=== PATIENT | female | born 1965 | race Caucasian/White ===

== ENCOUNTER 2024-09-11 13:28 | Observation (INO) | payer BC ==
--- OUTSIDE RECORDS SUMMARY | 2024-09-11 13:31 | XMS REPORT | Continuity of Care Document ---
Author Name Unknown Address [address] [facility] [address] th[address] Address [address] [facility] [address] [place] [address] Care Team Providers Care Occupational Health Physician Name Role Phone SATISH PICKENS Attending Clinician Unavailable KENNEDY BARROW Attending Clinician Unavailable KINSEY HARRIS Attending Clinician Unava ilable RADHA CURIEL Attending Clinician Un available [id number] Attending Clinician Unavailable MD TERRY Attending Clinician Unavailab le LAB90 Attending Clinician Unavailable BLAS MEJIA Attending Clinician Unavailable LADAN SORIA Attending Clinician Unavai lable LAB91 Attending Clinician Unavailable ARNOLD ERNANDEZ Attending Clinician Unavailable MANUEL NEWMAN Attending Clinician Unavailable [id number] Attending Clinician Unavailable Somphet_M_WAGDNU Attending Clinician Unavailable Aguilar_M Attending Clinician Unavailable DIDIER SHARP APRN Attending Clinician Unavaila ble Somphet_M_WAGDNU Admitting Clinician Unavailable Aguilar_M Admitting Clinician Unavailable Payers Payer Name Policy Type Policy Number Effective Date Expirati on Date Source BCBS 2 [id number] 2023 00:00:00 [facility]/P* 3 [id number] 2022 00:00:00 [facility] - CIGNA [id number] 2022 00:00:[place] [id number] 2018 00:00:00 Problems Condition Name Condition Details Condition Category Status Onset Date Resolution Date Last Treatment Date Treating Clinician Comments Source Type 2 diabetes mellitus with hyperlipid emia (multi HCC) Type 2 diabetes mellitus with hyperlipid emia (multi HCC) Disease Active 07-08 00:00: 00 Noreen Zieglerold - Externa l Type 2 diabetes mellitus (multi HCC) Type 2 diabetes mellitus (multi HCC) Disease Active 2021-11 00:00: 00 Noreen Zieglerold - Externa l Psoriasis Psoriasis Disease Active 2021-11 00:00: 00 Noreen Zieglerold - Externa l Essential hypertensi on Essential hypertensi on Disease Active 2021-11 00:00: 00 Noreen Zieglerold - Externa l Smokes tobacco daily Smokes Tobacco Daily Problem Active 2021-11 00:00: 00 [facility] Depressive disorder Depressive Disorder Problem Active 2021-11 00:00: 00 [facility] Psoriasis Psoriasis Problem Active 2021-11 00:00: 00 [facility] Diabetes mellitus Diabetes Mellitus Problem Active 02-21 00:00: 00 [facility] Hypertensi ve disorder Hypertensi ve Disorder Problem Active 415 00:00: 00 [facility] History of diabetes mellitus History of diabetes mellitus Problem [facility]olve d [facility] Problem Active [facility] Tobacco abuse Tobacco abuse Problem Active [facility] Dermatitis Dermatitis Problem Active [facility] Tobacco abuse counseling Tobacco abuse counseling Problem Active [facility] Alcohol screening Alcohol screening Problem Active [facility] Obesity (BMI 30-39.9) Obesity (BMI 30-39.9) Problem Active [facility] Type 2 diabetes mellitus Type 2 diabetes mellitus Problem Active [facility] Hyperlipid emia Hyperlipid emia Disease Active Noreen Seybold - Externa l Allergies, Adverse Reactions, Alerts Allergy Name Allergy Type Status Severity Reaction(s) Onset Date Inactive Date Treating Clinician Comments Source concrete dust [Other] Propensi ty to adverse reaction s Active 2021-11 00:00: 00 Noreen Zieglerold - Externa l Lisinopr il Propensi ty to adverse reaction s Active Cough 2021-11 00:00: 00 Noreen Seybold - Externa l Metformi n Drug Intolera nce Active Diarrhea 2021-11 00:00: 00 Noreen Zieglerold - Externa l Lisinopr il Allergy to substanc e Active Mild Cough [facility] Social History Social Habit Start Date Stop Date Quantity Comments Source Sexual orientation 2024-04-18 11:19:02 Heterosexual (finding) Noreen Juarez - External History of tobacco use 1978-11-09 00:00:00 Cigarette Smoker Noreen Juarez - External Gender identity Alma fay Seybold - External History SDOH Alcohol Frequency Noreen madrigal - External History SDOH Alcohol Std Drinks Noreen Orourke ybold - External History SDOH Alcohol Binge Noreen Juarez - External ASSERTION Not Noreen Juarez - External Alcoholic beverage intake 2024-08-18 00:00:00 2024-08-18 00:00:00 Current drinker of alcohol (finding) Noreen Juarez - External Cigarettes smoked current (pack per day) - Reported 2024-08-01 00:00:00 2024-08-01 00:00:00 Noreen Juarez - External Cigarette pack-years 2024-08-01 00:00:00 2024-08-01 00:00:00 Noreen Juarez - External Tobacco use and exposure 2024-08-01 00:00:00 2024-08-01 00:00:00 Smokeless tobacco non-user Noreen Juarez - External Alcohol intake 2023-11-27 00:00:00 2023-11-27 00:00:00 Current drinker of alcohol (finding) Noreen Juarez - External History of Social function 2023-03-26 00:00:00 2023-03-26 00:00:00 Noreen Juarez - External Alcohol Comment 2022-09-19 00:00:00 2022-09-19 00:00:00 socially Noreen Juarez - External Sex 2012-11-24 19:37:11 2012-11-24 19:37:11 Female (finding) Noreen Juarez - External Sex assigned at 1965 00:00:00 1965 00:00:00 F Noreen Juarez - External Smoking Status Start Date Stop Date Source Heavy Tobacco Smoker [facility] Tobacco smoking consumption unknown Noreen Valenzuela Smokes tobacco daily 2024-08-01 00:00:00 Noreen Valenzuela Ex-smoker 2024-05-06 00:00:00 2024-05-06 00:00:00 Noreen Valenzuela Medications Ordered Medication Name Filled Medication Name Start Date Stop Date Current Medication? Ordering Clinician Indication Dosage Frequency Signature (SIG) Comments Components Source Ascorbic Acid (Vitamin C) 500 MG oral Capsule 2023-11 10:19: 08-18 00:00 :00 No Take by mouth Noreen heart Zinc 50 MG oral Capsule 2023-11 10:19: 09 Yes Take by mouth Noreen heart COLLAGEN OR 2023-11 10:19: 09 Yes Take by mouth Noreen heart Cholecalcif josh (D-3-5) 125 MCG (5000 UT) oral Capsule 2023-11 10:19: 09 Yes Take by mouth Noreen heart Semaglutide (Rybelsus) 7 MG oral Tablet 2023-11 00:00: 00 Yes [id number] 1{tbl} QD Take 1 tablet by mouth daily. Noreen heart Pioglitazon e HCl 15 MG oral Tablet 2023-11 00:00: 00 Yes [id number] 15mg QD Take 1 tablet (15 mg total) by mouth daily. Noreen ehart Continuous Glucose Sensor (FreeStyle Elena 3 Plus Sensor) does not apply Misc 2023-11 00:00: 00 Yes [id number] 1{devic e} 1 device by does not apply route every 15 days. Noreen heart Semaglutide (Rybelsus) 3 MG oral Tablet 07-15 00:00: 00 08-18 00:00 :00 No [id number] 1{tbl} QD Take 1 tablet by mouth daily. Noreen heatr Escitalopra m Oxalate 10 MG oral Tablet - 00:00: 00 Yes [id number] 10mg QD Take 1 tablet (10 mg total) by mouth daily. Noreen heart Zinc 50 MG oral Capsule 06-03 07:58: 52 Yes Take by mouth Noreen heart Ascorbic Acid (Vitamin C) 500 MG oral Capsule 06-03 07:58: 30 Yes Take by mouth Noreen Landaa l COLLAGEN OR 06-03 07:58: 30 Yes Take by mouth Noreen heart Cholecalcif josh (D-3-5) 125 MCG (5000 UT) oral Capsule 06-03 07:58: 30 Yes Take by mouth Noreen heart Barberry-Or eg Grape-Golde nseal (BERBERINE COMPLEX OR) 06-03 07:57: 13 06-03 00:00 :00 No Take by mouth Noreen heart Ascorbic Acid (Vitamin C) 500 MG oral Capsule 05-06 09:04: 41 Yes Take by mouth Noreen heart Zinc 50 MG oral Capsule 05-06 09:04: 41 Yes Take by mouth Noreen heart COLLAGEN OR 05-06 09:04: 41 Yes Take by mouth Noreen heart Cholecalcif josh (D-3-5) 125 MCG (5000 UT) oral Capsule 05-06 09:04: 41 Yes Take by mouth Noreen heart Losartan Potassium-H CTZ 100-12.5 MG oral Tablet 05-06 00:00: 00 Yes [id number] 1{tbl} QD Take 1 tablet by mouth daily. Noreen heart Losartan Potassium-H CTZ 100-12.5 MG oral Tablet 05-06 00:00: 00 Yes [id number] 1{tbl} QD Take 1 tablet by mouth daily. Noreen heart Bupropion HCL XL 300 MG OR TB24 05-06 00:00: 00 Yes [id number] 300mg QD Take 1 tablet (300 mg total) by mouth daily. Noreen heart glyBURIDE 5 MG oral Tablet 05-06 00:00: 00 Yes [id number] 10mg QD Take 2 tablets (10 mg total) by mouth daily (with breakfast) . Noreen heart Losartan Potassium-H CTZ 100-12.5 MG oral Tablet 05-06 00:00: 00 Yes [id number] 1{tbl} QD Take 1 tablet by mouth daily. Noreen heart Rosuvastati n Calcium 40 MG oral Tablet 05-06 00:00: 00 Yes [id number] 40mg QD Take 1 tablet (40 mg total) by mouth daily. Noreen heart Bupropion HCL XL 300 MG OR TB24 05-06 00:00: 00 Yes [id number] 300mg QD Take 1 tablet (300 mg total) by mouth daily. Noreen heart Triamcinjameson ne Acetonide 0.1 % apply externally Cream 05-06 00:00: 00 Yes [id number] Apply to rash on the legs, arms, and trunk twice daily as needed. Noreen heart glyBURIDE 5 MG oral Tablet 05-06 00:00: 00 08-18 00:00 :00 No [id number] 10mg QD Take 2 tablets (10 mg total) by mouth daily (with breakfast) . Noreen heart Continuous Glucose Sensor (FreeStyle Elena 2 Sensor) does not apply Misc 05-06 00:00: 00 08-18 00:00 :00 No [id number] Check glucose continuous ly. Noreen heart Triamcinjameson ne Acetonide 0.1 % apply externally Cream 4-08 00:00: 00 05-06 00:00 :00 No [id number] Apply to rash on the legs, arms, and trunk twice daily as needed. Noreen heart Bupropion HCL XL 300 MG OR TB24 1-19 16:40: 25 11-27 00:00 :00 No 300mg Take 1 tablet (300 mg total) by mouth daily. Noreen heart Ascorbic Acid (Vitamin C) 500 MG oral Capsule 11-27 16:23: 49 Yes Take by mouth Noreen heart Zinc 50 MG oral Capsule 11-27 16:23: 49 Yes Take by mouth Noreen heart Barberry-Or eg Grape-Golde nseal (BERBERINE COMPLEX OR) 11-27 16:23: 49 Yes Take by mouth Noreen heart Cholecalcif josh (D-3-5) 125 MCG (5000 UT) oral Capsule 11-27 16:23: 49 Yes Take by mouth Noreen heart glyBURIDE 5 MG oral Tablet 11-27 00:00: 00 06-03 00:00 :00 No [id number] 5mg QD Take 1 tablet (5 mg total) by mouth daily (with breakfast) . Noreen heart Continuous Blood Gluc Sensor (FreeStyle Elena 2 Sensor) does not apply [facility] 11-27 00:00: 00 05-06 00:00 :00 No [id number] Check glucose continuous ly. Noreen heart Losartan Potassium-H CTZ 100-12.5 MG oral Tablet 11-27 00:00: 00 05-06 00:00 :00 No [id number] 1{tbl} QD Take 1 tablet by mouth daily. Noreen heart Bupropion HCL XL 300 MG OR TB24 11-27 00:00: 00 05-06 00:00 :00 No [id number] 300mg QD Take 1 tablet (300 mg total) by mouth daily. Noreen heart Rosuvastati n Calcium 40 MG oral Tablet 11-27 00:00: 00 05-06 00:00 :00 No [id number] 40mg QD Take 1 tablet (40 mg total) by mouth daily. Noreen heart Bupropion HCL XL 150 MG OR TB24 -17 00:00: 00 11-27 00:00 :00 No 150mg Take 1 tablet (150 mg total) by mouth daily Noreen heart Jardiance 10 MG oral Tablet 06-15 00:00: 00 06-03 00:00 :00 No [id number] 10mg QD TAKE ONE (1) TABLET(S) BY MOUTH DAILY. Noreen heart Rosuvastati n Calcium 40 MG oral Tablet 03-30 00:00: 00 11-27 00:00 :00 No 40mg Take 1 tablet (40 mg total) by mouth daily Noreen heart Ascorbic Acid (Vitamin C) 500 MG oral Capsule 03-26 08:14: 46 Yes Take by mouth Noreen heart Zinc 50 MG oral Capsule 03-26 08:14: 46 Yes Take by mouth Noreen heart Barberry-Or eg Grape-Golde nseal (BERBERINE COMPLEX OR) 03-26 08:14: 46 Yes Take by mouth Noreen heart Cholecalcif josh (D-3-5) 125 MCG (5000 UT) oral Capsule 03-26 08:14: 46 Yes Take by mouth Noreen heart glyBURIDE 5 MG oral Tablet 03-26 00:00: 00 Yes [id number] 5mg Take 1 tablet (5 mg total) by mouth daily (with breakfast) Noreen heart Bupropion HCL XL 300 MG OR TB24 03-26 00:00: 00 Yes [id number] 300mg Take 1 tablet (300 mg total) by mouth daily Noreen heart Losartan Potassium-H CTZ 100-12.5 MG oral Tablet 03-26 00:00: 00 Yes [id number] 1{tbl} Take 1 tablet by mouth daily Noreen heart Rosuvastati n Calcium 20 MG oral Tablet 03-26 00:00: 00 Yes [id number] TAKE 1 TABLET EVERY DAY BY ORAL ROUTE. Noreen heart Empaglifloz in (Jardiance) 10 MG oral Tablet 03-26 00:00: 00 Yes [id number] 10mg Take 1 tablet (10 mg total) by mouth daily Noreen heart Imiquimod 5 % apply externally Cream 01-28 00:00: 00 Yes [id number] Apply a thin layer to area on the left lower eyelid nightly for 16 weeks. Noreen heart Ascorbic Acid (Vitamin C) 500 MG oral Capsule 01-01 13:42: 02 Yes Take by mouth Noreen heart Zinc 50 MG oral Capsule 01-01 13:42: 02 Yes Take by mouth Noreen heart Barberry-Or eg Grape-Golde nseal (BERBERINE COMPLEX OR) 01-01 13:42: 02 Yes Take by mouth Noreen heart Cholecalcif josh (D-3-5) 125 MCG (5000 UT) oral Capsule 01-01 13:42: 02 Yes Take by mouth Noreen heart Bupropion HCL XL 300 MG OR TB24 01-01 00:00: 00 Yes [id number] 300mg Take 1 tablet (300 mg total) by mouth daily Noreen heart Losartan Potassium-H CTZ 100-12.5 MG oral Tablet 01-01 00:00: 00 Yes [id number] 1{tbl} Take 1 tablet by mouth daily Noreen heart glyBURIDE 5 MG oral Tablet 01-01 00:00: 00 04-02 04:59 :00 No [id number] 5mg Take 1 tablet (5 mg total) by mouth daily (with breakfast) Noreen heart Semaglutide (Rybelsus) 7 MG oral Tablet 01-01 00:00: 00 03-26 00:00 :00 No [id number] 1{tbl} Take 1 tablet by mouth daily Noreen heart Rosuvastati n Calcium 20 MG oral Tablet 01-01 00:00: 00 03-26 00:00 :00 No [id number] TAKE 1 TABLET EVERY DAY BY ORAL ROUTE. Noreen heart Imiquimod 5 % apply externally Cream 12-30 00:00: 00 Yes [id number] Apply a thin layer to area on the left lower eyelid nightly for 16 weeks. Noreen heart glyBURIDE 5 MG oral Tablet 12-17 00:00: 00 01-01 00:00 :00 No [id number] 10mg Take 2 tablets (10 mg total) by mouth daily (with breakfast) Noreen heart Glucose Blood in vitro Strip 11-10 00:00: 00 Yes 100{eac h} 100 each by other route daily Noreen heart Glucose Blood in vitro Strip 11-10 00:00: 00 Yes 100{eac h} QD 100 each by other route daily Noreen heart Bupropion HCL XL 300 MG OR TB24 11-10 00:00: 00 01-01 00:00 :00 No 300mg Take 1 tablet (300 mg total) by mouth daily Noreen heart Losartan Potassium-H CTZ 100-12.5 MG oral Tablet 11-10 00:00: 00 01-01 00:00 :00 No 1{tbl} Take 1 tablet by mouth daily Noreen heart Blood Glucose Monitoring Suppl (Accu-Chek Valentine Plus) w/Device does not apply Kit 2021-11 00:00: 00 Yes USE DIRECTED NEEDED. Noreen heart Ascorbic Acid (Vitamin C) 500 MG oral Capsule 2021-11 08:09: 47 Yes Take by mouth Noreen heart Zinc 50 MG oral Capsule 2021-11 08:09: 47 Yes Take by mouth Noreen heart Barberry-Or eg Grape-Golde nseal (BERBERINE COMPLEX OR) 2021-11 08:09: 47 Yes Take by mouth Noreen heart Cholecalcif josh (D-3-5) 125 MCG (5000 UT) oral Capsule 2021-11 08:09: 47 Yes Take by mouth Noreen heart Continuous Blood Gluc Information Resource Consultant (FreeStyle Elena 14 Day [place]) does not apply Device 2021-11 00:00: 00 Yes [id number] Use as directed for continuous glucose monitoring Noreen heart Continuous Blood Gluc Sensor (FreeStyle Elena 14 Day Sensor) does not apply Misc 2021-11 00:00: 00 Yes [id number] Use as directed for continuous glucose monitoring with Elena sytem Noreen heart Semaglutide (Rybelsus) 7 MG oral Tablet 2021-11 00:00: 00 Yes [id number] 1{tbl} Take 1 tablet by mouth daily Noreen heart Glucose Blood (FreeStyle Precision Kirill Test) in vitro Strip 2021-11 00:00: 00 08-18 00:00 :00 No [id number] Use as directed for continuous glucose monitoring with Elena system Noreen heart Ostomy Supplies (Skin Tac Adhesive Barrier Wipe) does not apply [facility] 2021-11 00:00: 00 06-03 00:00 :00 No [id number] Use as directed for continuous glucose monitoring with Elena system Noreen heart glyBURIDE 5 MG oral Tablet 2021-11 00:00: 00 12-19 05:59 :00 No [id number] 10mg Take 2 tablets (10 mg total) by mouth daily (with breakfast) Noreen heart Triamcinolo ne Acetonide 0.1 % apply externally Cream 2021-11 00:00: 00 Yes [id number] Apply to rash on the legs, arms, and trunk twice daily as needed Noreen heart Hydrocortis one 2.5 % apply externally Cream 2021-11 00:00: 00 Yes [id number] Apply to rash on the armpits and breasts twice daily as needed. Noreen heart Rosuvastati n Calcium 20 MG oral Tablet 2021-11 0 00:00: 00 Yes TAKE 1 TABLET EVERY DAY BY ORAL ROUTE. Noreen heart Rybelsus 3 mg tablet Take 1 tablet every day by oral route for 30 days. Rybelsus 3 mg tablet Take 1 tablet every day by oral route for 30 days. 2021-11 00:00: 00 No 1 Q1D Rybelsus 3 mg tablet Take 1 tablet every day by oral route for 30 days. [facility] Rybelsus 3 mg tablet Take 1 tablet every day by oral route for 30 days. Rybelsus 3 mg tablet Take 1 tablet every day by oral route for 30 days. 2021-11 00:00: 00 No 1 Q1D Rybelsus 3 mg tablet Take 1 tablet every day by oral route for 30 days. [facility] Bupropion HCL XL 300 MG OR TB24 07-27 00:00: 00 Yes 300mg Take 300 mg by mouth daily Noreen Landaa una glyBURIDE 5 MG oral Tablet 07-26 00:00: 00 Yes 5mg Take 5 mg by mouth daily Noreen Landaa una Atorvastati n Calcium 10 MG oral Tablet 07-24 00:00: 00 Yes 10mg Take 10 mg by mouth daily Noreen Landaa una Losartan Potassium-H CTZ 100-12.5 MG oral Tablet 07-23 00:00: 00 Yes 1{tbl} Take 1 tablet by mouth daily Noreen Landaa una Wellbutrin XL Wellbutrin XL 2019-11 00:00: 00 No Wellbutrin XL [facility] glyBURIDE 5 MG Oral Tablet glyBURIDE 5 MG Oral Tablet 2019-11 00:00: 00 Yes DIDIER SHARP APRN Q0.5D TAKE 2 TABLETS TWICE DAILY [facility] Lantus SoloStar 100 UNIT/ML Subcutaneou s Solution Pen-injecto r Lantus SoloStar 100 UNIT/ML Subcutaneou s Solution Pen-injecto r 2019-11 00:00: 00 Yes DIDIER SHARP APRN QD INJECT 10 UNIT DAILY every evening [facility] Accu-Chek Valentine Plus w/Device Kit Accu-Chek Valentine Plus w/Device Kit 2019-11 00:00: 00 Yes DIDIER SHARP APRN USE DIRECTED. [facility] Accu-Chek Valentine Plus In Vitro Strip Accu-Chek Valentine Plus In Vitro Strip 2019-11 00:00: 00 Yes DIDIER SHARP ASSEMBLER 1ST SHIFT test 3 times daily [facility] Accu-Chek FastClix Lancets Accu-Chek FastClix Lancets 2019-11 00:00: 00 Yes DIDIER SHARP ASSEMBLER 1ST SHIFT CHECK BLOOD SUGAR DIRECTED (3 TIMES DAILY). [facility] BD Pen Needle Mini U/F 31G X 5 MM BD Pen Needle Mini U/F 31G X 5 MM 2019-11 00:00: 00 Yes DIDIER SHARP ASSEMBLER 1ST SHIFT USE DIRECTED. [facility] Losartan Potassium-H CTZ 100-25 MG Oral Tablet Losartan Potassium-H CTZ 100-25 MG Oral Tablet 2019-11 00:00: 00 Yes DIDIER SHARP ASSEMBLER 1ST SHIFT QD TAKE 1 TABLET ONCE DAILY. [facility] buPROPion HCl ER (XL) 150 MG Oral Tablet Extended Release 24 Hour buPROPion HCl ER (XL) 150 MG Oral Tablet Extended Release 24 Hour 2019-11 00:00: 00 Yes DIDIER SHARP ASSEMBLER 1ST SHIFT QD TAKE 1 TABLET DAILY DIRECTED. [facility] predniSONE 20 MG Oral Tablet predniSONE 20 MG Oral Tablet 2019-11 00:00: 00 Yes DIDIER SHARP ASSEMBLER 1ST SHIFT 1 Q0.5D TAKE 1 TABLET Twice daily As Directed with food [facility] atorvastati n 10 mg tablet TAKE ONE (1) TABLET(S) BY MOUTH DAILY. atorvastati n 10 mg tablet TAKE ONE (1) TABLET(S) BY MOUTH DAILY. No atorvastat in 10 mg tablet TAKE ONE (1) TABLET(S) BY MOUTH DAILY. [facility] atorvastati n 10 mg tablet Take 1 tablet every day by oral route for 90 days. atorvastati n 10 mg tablet Take 1 tablet every day by oral route for 90 days. No 1 Q1D atorvastat in 10 mg tablet Take 1 tablet every day by oral route for 90 days. [facility] bupropion HCl XL 300 mg 24 hr tablet, extended release Take 1 tablet every day by oral route for 90 days. bupropion HCl XL 300 mg 24 hr tablet, extended release Take 1 tablet every day by oral route for 90 days. No 1 Q1D bupropion HCl XL 300 mg 24 hr tablet, extended release Take 1 tablet every day by oral route for 90 days. [facility] glyburide 5 mg tablet Take 2 tablets twice a day by oral route for 90 days. glyburide 5 mg tablet Take 2 tablets twice a day by oral route for 90 days. No 2 BID glyburide 5 mg tablet Take 2 tablets twice a day by oral route for 90 days. [facility] Immunizations Ordered Immunization Name Filled Immunization Name Date Status Comments Source zoster recombinant zoster recombinant 2021-04-26 16:37:17 Completed [facility] zoster, unspecified formulation zoster, unspecified formulation 2021-04-26 00:00:00 Completed [facility] zoster, unspecified formulation zoster, unspecified formulation 2021-04-26 00:00:00 Completed [facility] pneumococcal polysaccharide PPV23 pneumococcal polysaccharide PPV23 2021-02-21 12:03:00 Completed [facility] Tdap Tdap 2021-02-21 12:02:00 Completed [facility] Tdap Tdap 2021-02-21 12:02:00 Completed [facility] Tdap Tdap 2021-02-21 12:02:00 Completed [facility] zoster recombinant zoster recombinant 2021-02-21 12:01:00 Completed [facility] pneumococcal, unspecified formulation pneumococcal, unspecified formulation 2021-02-21 00:00:00 Completed [facility] zoster, unspecified formulation zoster, unspecified formulation 2021-02-21 00:00:00 Completed [facility] tetanus toxoid, unspecified formulation tetanus toxoid, unspecified formulation 2021-02-21 00:00:00 Completed [facility] pneumococcal, unspecified formulation pneumococcal, unspecified formulation 2021-02-21 00:00:00 Completed [facility] zoster, unspecified formulation zoster, unspecified formulation 2021-02-21 00:00:00 Completed [facility] tetanus toxoid, unspecified formulation tetanus toxoid, unspecified formulation 2021-02-21 00:00:00 Completed [facility] pneumococcal, unspecified formulation Unknown Completed Noreen Seybold - External Tdap- (Boostrix, Adacel) Unknown Completed Noreen Seybold - External tetanus toxoid, unspecified formulation Unknown Completed Noreen Zieglerold - External zoster, unspecified formulation Unknown Completed Noreen Orourkeybold - External Pneumococcal Vaccine, Polysaccharide Unknown Completed Noreen Seybold - External Shingles IM (Shingrix) Unknown Completed Noreen Seybold - External pneumococcal, unspecified formulation Unknown Completed Noreen Seybold - External Tdap- (Boostrix, Adacel) Unknown Completed Noreen Seybold - External tetanus toxoid, unspecified formulation Unknown Completed Noreen Seybold - External zoster, unspecified formulation Unknown Completed Noreen Seybold - External Pneumococcal Vaccine, Polysaccharide Unknown Completed Noreen Seybold - External Shingles IM (Shingrix) Unknown Completed Noreen Seybold - External pneumococcal, unspecified formulation Unknown Completed Noreen Seybold - External Tdap- (Boostrix, Adacel) Unknown Completed Noreen Seybold - External tetanus toxoid, unspecified formulation Unknown Completed Noreen Seybold - External zoster, unspecified formulation Unknown Completed Noreen Seybold - External Pneumococcal Vaccine, Polysaccharide Unknown Completed Noreen Seybold - External Shingles IM (Shingrix) Unknown Completed Noreen Seybold - External pneumococcal, unspecified formulation Unknown Completed Noreen Seybold - External Tdap- (Boostrix, Adacel) Unknown Completed Noreen Seybold - External tetanus toxoid, unspecified formulation Unknown Completed Noreen Seybold - External zoster, unspecified formulation Unknown Completed Noreen Seybold - External Pneumococcal Vaccine, Polysaccharide Unknown Completed Noreen Seybold - External Shingles IM (Shingrix) Unknown Completed Noreen Seybold - External Vital Signs Vital Name Observation Time Observation Value Comments S ource Systolic blood pressure 2024-08-18 15:28:00 112 mm[Hg] Noreen Seybold - External Diastolic blood pressure 2024-08-18 15:28:00 74 mm[Hg] Noreen Seybold - External Heart rate 2024-08-18 15:28:00 87 /min Noreen Orourkeybold - External Body temperature 2024-08-18 15:28:00 36.83 Marielle Noreen Orourkeybold - External Respiratory rate 2024-08-18 15:28:00 18 /min Noreen Orourkeybold - External Body height 2024-08-18 15:28:00 160 cm Noreen Zieglerold - External Body weight 2024-08-18 15:28:00 83.915 kg Noreen Zieglerold - External BMI 2024-08-18 15:28:00 32.77 kg/m2 Noreen Seybold - External Systolic blood pressure 2024-06-03 12:55:00 128 mm[Hg] Noreen Seybold - External Diastolic blood pressure 2024-06-03 12:55:00 74 mm[Hg] Noreen Seybold - External Heart rate 2024-06-03 12:55:00 98 /min Noreen Seybold - External Body temperature 2024-06-03 12:55:00 36.94 Marielle Noreen Seybold - External Respiratory rate 2024-06-03 12:55:00 20 /min Noreen Seybold - External Body height 2024-06-03 12:55:00 160 cm Noreen Seybold - External Body weight 2024-06-03 12:55:00 91.627 kg Noreen Seybold - External BMI 2024-06-03 12:55:00 35.78 kg/m2 Noreen Seybold - External Oxygen saturation in Arterial blood by Pulse oximetry 2024-06-03 12:55:00 95 /min Noreen Seybold - External Systolic blood pressure 2024-05-06 14:02:00 140 mm[Hg] Noreen Seybold - External Diastolic blood pressure 2024-05-06 14:02:00 74 mm[Hg] Noreen Seybold - External Heart rate 2024-05-06 14:02:00 94 /min Noreen Seybold - External Body temperature 2024-05-06 14:02:00 35.67 Marielle Noreen Seybold - External Respiratory rate 2024-05-06 14:02:00 15 /min Noreen Seybold - External Body height 2024-05-06 14:02:00 160 cm Noreen Seybold - External Body weight 2024-05-06 14:02:00 91.627 kg Noreen Seybold - External BMI 2024-05-06 14:02:00 35.78 kg/m2 Noreen Seybold - External Systolic blood pressure 2023-11-27 22:22:00 122 mm[Hg] Noreen Seybold - External Diastolic blood pressure 2023-11-27 22:22:00 80 mm[Hg] Noreen Seybold - External Heart rate 2023-11-27 22:22:00 90 /min Noreen Seybold - External Body temperature 2023-11-27 22:22:00 37 Marielle Noreen Seybold - External Respiratory rate 2023-11-27 22:22:00 20 /min Noreen Seybold - External Body height 2023-11-27 22:22:00 160 cm Noreen Seybold - External Body weight 2023-11-27 22:22:00 90.266 kg Noreen Seybold - External BMI 2023-11-27 22:22:00 35.25 kg/m2 Noreen Seybold - External Oxygen saturation in Arterial blood by Pulse oximetry 2023-11-27 22:22:00 95 /min Noreen Seybold - External Systolic blood pressure 2023-03-26 13:16:00 114 mm[Hg] Noreen Seybold - External Diastolic blood pressure 2023-03-26 13:16:00 82 mm[Hg] Noreen Seybold - External Heart rate 2023-03-26 13:16:00 90 /min Noreen Seybold - External Body temperature 2023-03-26 13:16:00 36.67 Marielle Noreen Seybold - External Respiratory rate 2023-03-26 13:16:00 18 /min Noreen Seybold - External Body height 2023-03-26 13:16:00 160 cm Noreen Seybold - External Body weight 2023-03-26 13:16:00 87.544 kg Noreen Seybold - External BMI 2023-03-26 13:16:00 34.19 kg/m2 Noreen Seybold - External Oxygen saturation in Arterial blood by Pulse oximetry 2023-03-26 13:16:00 97 /min Noreen Seybold - External Systolic blood pressure 2023-01-01 19:35:00 130 mm[Hg] Noreen Seybold - External Diastolic blood pressure 2023-01-01 19:35:00 78 mm[Hg] Noreen Seybold - External Heart rate 2023-01-01 19:35:00 112 /min Noreen Seybold - External Body temperature 2023-01-01 19:35:00 37 Marielle Noreen Seybold - External Respiratory rate 2023-01-01 19:35:00 15 /min Noreen Seybold - External Body height 2023-01-01 19:35:00 160 cm Noreen Seybold - External Body weight 2023-01-01 19:35:00 85.276 kg Noreen Seybold - External BMI 2023-01-01 19:35:00 33.30 kg/m2 Noreen Seybold - External Oxygen saturation in Arterial blood by Pulse oximetry 2023-01-01 19:35:00 98 /min Noreen Seybold - External Systolic blood pressure 2022-09-19 14:10:00 116 mm[Hg] Noreen Seybold - External Diastolic blood pressure 2022-09-19 14:10:00 74 mm[Hg] Noreen Seybold - External Heart rate 2022-09-19 14:10:00 108 /min Noreen Seybold - External Body temperature 2022-09-19 14:10:00 36.94 Marielle Noreen Orourkeybold - External Respiratory rate 2022-09-19 14:10:00 18 /min Noreen Seybold - External Body height 2022-09-19 14:10:00 160 cm Noreen Seybold - External Body weight 2022-09-19 14:10:00 90.538 kg Noreen Seybold - External BMI 2022-09-19 14:10:00 35.36 kg/m2 Noreen Seybold - External Oxygen saturation in Arterial blood by Pulse oximetry 2022-09-19 14:10:00 98 /min Noreen Seybold - External BP Diastolic 2022-08-29 00:00:00 85 mm[Hg] [facility] Height 2022-08-29 00:00:00 63 [in_i] [facility] BMI (Body Mass Index) 2022-08-29 00:00:00 35.5 kg/m2 [facility] BP Systolic 2022-08-29 00:00:00 134 mm[Hg] [facility] Body Weight 2022-08-29 00:00:00 200.6 [lb_av] [facility] BP Diastolic 2021-02-21 00:00:00 84 mm[Hg] [facility] Height 2021-02-21 00:00:00 63 [in_i] [facility] BMI (Body Mass Index) 2021-02-21 00:00:00 35.6 kg/m2 [facility] BP Systolic 2021-02-21 00:00:00 131 mm[Hg] [facility] Body Weight 2021-02-21 00:00:00 201.2 [lb_av] [facility] Systolic blood pressure 2020-10-22 17:51:00 142 mm[Hg] Location: LUE; Position: Sitting [facility] Diastolic blood pressure 2020-10-22 17:51:00 82 mm[Hg] Location: LUE; Position: Sitting [facility] Systolic blood pressure 2020-10-22 17:26:00 149 mm[Hg] Location: LUE; Position: Sitting [facility] Diastolic blood pressure 2020-10-22 17:26:00 84 mm[Hg] Location: LUE; Position: Sitting [facility] Body height 2020-10-22 17:26:00 66 [in_us] [facility] Body mass index (BMI) [Ratio] 2020-10-22 17:26:00 32.48 kg/m2 [facility] Weight 2020-10-22 17:26:00 201.25 [lb_av] [facility] Body temperature 2020-10-22 17:26:00 96.9 [degF] Method: Temporal [facility] Heart Rate 2020-10-22 17:26:00 95 /min Location: L Brachial Artery; Quality: Normal [facility] Respiratory rate 2020-10-22 17:26:00 18 /min Quality: Normal [facility] O2 SAT 2020-10-22 17:26:00 97 % Source: RA [facility] Procedures Procedure Date / Time Performed Performing Clinicia n Source MAMMO, 3D rendering, w/o image post-processing 2022-08-29 00:00:00 [facility] MAMMO, screening, digital, bilateral 2022-08-29 00:00:00 [facility] LDCT, chest, for lung cancer screening 2022-08-29 00:00:00 [facility] [QL] HEMOGLOBIN A1c 2020-10-22 00:00:00 [facility] [QL] CBC (INCLUDES DIFF/PLT) 2020-10-22 00:00:00 [facility] [QL] LIPID PANEL 2020-10-22 00:00:00 [facility] [QL] TSH, 3RD GENERATION W/REFLEX TO FT4 2020-10-22 00:00:00 [facility] [QL] CMP W/EGFR 2020-10-22 00:00:00 [facility] [Q] HIV AB, HIV 1/2, EIA, WITH REFLEXES 2020-10-22 00:00:00 [facility] [QL] HEPATITIS PANEL 2020-10-22 00:00:00 [facility] Plan of Care Planned Activity Planned Date Details Comments Source Diagnostic Test Pending 2022-08-29 00:00:00 CBC w/ auto diff [code = CBC w/ auto diff] [facility] Diagnostic Test Pending 2022-08-29 00:00:00 CMP, serum or plasma [code = CMP, serum or plasma] [facility] Diagnostic Test Pending 2022-08-29 00:00:00 lipid panel, serum [code = lipid panel, serum] [facility] Diagnostic Test Pending 2022-08-29 00:00:00 TSH, serum or plasma [code = TSH, serum or plasma] [facility] Diagnostic Test Pending 2022-08-29 00:00:00 urinalysis, dipstick [code = urinalysis, dipstick] [facility] Diagnostic Test Pending 2022-08-29 00:00:00 microalbumin/creatini ne, mass ratio, urine [code = microalbumin/creatini ne, mass ratio, urine] [facility] Diagnostic Test Pending 2022-08-29 00:00:00 HbA1c (hemoglobin A1c), blood [code = HbA1c (hemoglobin A1c), blood] [facility] Diagnostic Test Pending 2022-08-29 00:00:00 noninvasive colorectal cancer DNA + occult blood screening, QL, stool [code = noninvasive colorectal cancer DNA + occult blood screening, QL, stool] [facility] Encounters Start Date/Time End Date/Time Encounter Type Admission Type Attending Clinicians Care Facility Care Department Encounter ID Source 2024-11-24 10:30:00 2024-11-24 10:30:00 Outpatient SATISH PICKENS [id number] Noreen Juarez 2024-09-02 10:00:00 2024-09-02 10:00:00 Outpatient KENNEDY BARROW [id number] Noreen Juarez 2024-09-01 00:00:00 2024-09-01 00:00:00 Outpatient KINSEY HARRIS [id number] Noreen Juarez 2024-08-22 10:45:00 2024-08-22 10:45:00 Outpatient RADHA CURIEL NOREEN MENDOZA [id number] Noreen Seybold 2024-08-18 11:15:00 2024-08-18 11:15:00 Outpatient ANGÉLICA NOREEN MENDOZA [id number] Noreen Seybold 2024-08-18 10:30:00 2024-08-18 10:30:00 Outpatient SATISH PICKENS NOREEN MENDOZA [id number] Noreen Seybold 2024-08-01 00:00:00 2024-08-01 00:00:00 Outpatient KINSEY HARRIS [id number] Noreen Seybold 2024-08-01 00:00:00 2024-08-01 00:00:00 Outpatient MD NOREEN PAULINO [id number] Noreen Seybold 2024-07-28 15:30:00 2024-07-28 15:30:00 Outpatient NOREEN MENDOZA [id number] Noreen Seybold 2024-07-27 08:00:00 2024-07-27 08:00:00 Outpatient NOREEN MENDOZA [id number] Noreen Seybold 2024-07-15 00:00:00 2024-07-15 00:00:00 Outpatient KENNEDY BARROW [id number] Noreen Seybold 2024-07-14 00:00:00 2024-07-14 00:00:00 Outpatient KENNEDY BARROW [id number] Noreen Seybold 2024-07-08 00:00:00 2024-07-08 00:00:00 Outpatient KINSEY HARRIS [id number] Noreen Seybold 2024-07-08 00:00:00 2024-07-08 00:00:00 Outpatient KENNEDY BARROW [id number] Noreen Seybold 2024-07-07 16:00:00 2024-07-07 16:00:00 Outpatient NOREEN MENDOZA [id number] Noreen Seybold 2024-06-06 00:00:2024-06-06 00:00:00 Outpatient KINSEY HARRIS NOREEN MENDOZA [id number] [facility] 2024-06-03 08:50:00 2024-06-03 08:50:00 Outpatient LAB90 NOREEN MENDOZA [id number] [facility] 2024-06-03 08:00:00 2024-06-03 08:00:00 Outpatient KINSEY HARRIS NOREEN MENDOZA [id number] [facility] 2024-05-06 09:30:00 2024-05-06 09:30:00 Outpatient KINSEY HARRIS NOREEN MENDOZA [id number] Noreen [facility] 2024-02-15 00:00:00 2024-02-15 00:00:00 Outpatient JOE MEJIAILY NOREEN MENDOZA [id number] Noreen [facility] 2023-11-27 16:15:00 2023-11-27 16:15:00 Outpatient KINSEY HARRIS NOREEN [facility]END[facility] [id number] [facility] 2023-11-26 16:00:00 2023-11-26 16:00:00 Outpatient KINSEY HARRIS NOREEN MENDOZA [id number] [facility] 2023-09-24 08:00:00 2023-09-24 08:00:00 Outpatient ROBERTO BLAS NOREEN MENDOZA [id number] [facility] 2023-06-24 00:00:00 2023-06-24 00:00:00 Outpatient LADAN SORIA [id number] [facility] 2023-06-13 00:00:00 2023-06-13 00:00:00 Outpatient ESTELLALADAN [id number] [facility] 2023-04-09 00:00:00 2023-04-09 00:00:00 Outpatient MD NOREEN PAULINO [id number] [facility] 2023-04-09 00:00:00 2023-04-09 00:00:00 Outpatient MD NOREEN PAULINO [id number] [facility] 2023-03-26 09:15:00 2023-03-26 09:15:00 Outpatient LAB91 NOREENADILIA MENDOZA [id number] Noreen Seybold 2023-03-26 08:30:00 2023-03-26 08:30:00 Outpatient LADAN SORIAADILIA MENDOZA [id number] Noreen Seybold 2023-03-26 07:45:00 2023-03-26 07:45:00 Outpatient ROBERTO, BLAS NOREEN MENDOZA [id number] Noreen Seybold 2023-01-27 00:00:00 2023-01-27 00:00:00 Outpatient ROBERTO, BLAS NOREEN MENDOZA [id number] Noreen Seybold 2023-01-19 08:00:00 2023-01-19 08:00:00 Outpatient SAMDANUTA, LADAN NOREEN MENDOZA [id number] Noreen Seybold 2023-01-01 14:15:00 2023-01-01 14:15:00 Outpatient LAB91 NOREEN MENDOZA [id number] Noreen Seybold 2023-01-01 13:45:00 2023-01-01 13:45:00 Outpatient LADAN SORIA NOREEN MENDOZA [id number] Noreen Seybold 2022-12-29 00:00:00 2022-12-29 00:00:00 Outpatient ROBERTO, BLAS NOREEN MENDOZA [id number] Noreen Seybold 2022-12-17 00:00:00 2022-12-17 00:00:00 Outpatient SAMLADAN TIPTON NOREEN MENDOZA [id number] Noreen Seybold 2022-12-09 00:00:00 2022-12-09 00:00:00 Outpatient ROBERTO, BLAS MENDOZA [id number] Noreen Seybold 2022-11-27 00:00:00 2022-11-27 00:00:00 Outpatient AWAIS, ARNOLD MENDOZA [id number] Noreen Seybold 2022-11-20 12:30:00 2022-11-20 12:30:00 Outpatient AWAIS, ARNOLD MENDOZA [id number] Noreen Seybold 2022-11-18 07:30:00 2022-11-18 07:30:00 Outpatient ROBERTO, BLAS MENDOZA [id number] Noreen Seybold 2022-11-06 00:00:00 2022-11-06 00:00:00 Outpatient LADAN SORIA NOREEN MENDOZA [id number] Noreen Orourkejorge luis 2022-10-31 08:30:00 2022-10-31 08:30:00 Outpatient MANUEL NEWMAN NOREEN MENDOZA [id number] Noreen [facility] 2022-10-17 08:00:00 2022-10-17 08:00:00 Outpatient LADAN SORIA NOREEN MENDOZA [id number] Noreen [facility] 2022-10-10 00:00:00 2022-10-10 00:00:00 Outpatient LADAN SORIA NOREEN MENDOZA [id number] [facility] 2022-10-08 00:00:00 2022-10-08 00:00:00 Outpatient LADAN SORIA NOREEN MENDOZA [id number] [facility] 2022-10-08 00:00:00 2022-10-08 00:00:00 Outpatient ARNOLD ERNANDEZ NOREEN MENDOZA [id number] [facility] 2022-09-19 08:45:00 2022-09-19 08:45:00 Outpatient LAB91 NOREEN MENDOZA [id number] [facility] 2022-09-19 08:00:00 2022-09-19 08:00:00 Outpatient LADAN SORIA NOREEN MENDOZA [id number] [facility] 2022-09-17 00:00:00 2022-09-17 00:00:00 Outpatient BLAS MEJIA [id number] Noreen [facility] 2022-09-11 11:00:00 2022-09-11 11:00:00 Outpatient [id number] NOREEN MENDOZA [id number] [facility] 2022-09-11 07:45:00 2022-09-11 07:45:00 Outpatient BLAS MEJIA [id number] [facility] 2022-08-29 00:00:00 2022-08-29 00:00:00 Outpatient Somphet_M_W AGDNU VFP VFP [id number] [facility] 2022-08-29 00:00:00 2022-08-29 00:00:00 Viola Shaffer, ROXI: [address], [place] [address] , Ph. VFP [place] - [facility] [place] [facility] ([place] [id number] [facility] 2022-08-27 00:00:00 2022-08-27 00:00:00 Outpatient Aguilar_M VFP VFP [id number] [facility] 2022-08-26 00:00:00 2022-08-26 00:00:00 Outpatient Aguilar_M VFP VFP [id number] [facility] 2021-09-09 00:00:00 2021-09-09 00:00:00 Outpatient Aguilar_M VFP VFP [id number] [facility] 2021-07-12 12:20:00 2021-07-12 12:20:00 Outpatient Somphet_M_W AG VFP VFP [id number] [facility] 2021-07-12 00:00:00 2021-07-12 00:00:00 Outpatient Somphet_M_W AGDNU VFP VFP [id number] [facility] 2021-04-30 03:29:00 2021-04-30 03:29:00 Outpatient Aguilar_M VFP VFP [id number] [facility] 2021-04-26 05:31:00 2021-04-26 05:31:00 Outpatient Somphet_M_W AG VFP VFP [id number] [facility] 2021-04-26 00:00:00 2021-04-26 00:00:00 Criselda Fink MD: [address], [place] [address] , Ph. VFP [place] - [facility] - [facility] ([place]) [id number] [facility] 2021-04-22 01:38:00 2021-04-22 01:38:00 Outpatient Somphet_M_W AG VFP VFP [id number] [facility] 2021-04-22 01:38:00 2021-04-22 01:38:00 Outpatient Aguilar_M VFP VFP [id number] [facility] 2021-03-18 11:03:00 2021-03-18 11:03:00 Outpatient Aguilar_M VFP VFP [id number] [facility] 2021-03-09 01:02:00 2021-03-09 01:02:00 Outpatient Somphet_M_W AG VFP VFP [id number] [facility] 2021-02-26 06:50:00 2021-02-26 06:50:00 Outpatient Aguilar_M VFP VFP [id number] [facility] 2021-02-21 10:52:00 2021-02-21 10:52:00 Outpatient Somphet_M_W AG VFP VFP [id number] [facility] 2021-02-21 00:00:00 2021-02-21 00:00:00 Criselda Fink MD: [address], [place] [address] , Ph. VFP [place] - [facility] - [facility] [facility] ([place]) [id number] [facility] 2021-02-15 11:41:00 2021-02-15 11:41:00 Outpatient Somphet_M_W AG VFP VFP [id number] [facility] 2021-02-15 11:41:00 2021-02-15 11:41:00 Outpatient Aguilar_M VFP VFP [id number] [facility] 2021-02-14 11:53:00 2021-02-14 11:53:00 Outpatient Somphet_M_W AG VFP VFP [id number] [facility] 2020-10-22 17:00:2020-10-22 17:00:00 DIDIER Lopez APRN FUENTES, ROSA, APRN [facility] [id number] [facility] Results Test Description Test Time Test Comments Results Result Co mments Source [facility][] LIPID [id number] 00:00:00* Test Item Value Reference Range Interpretation Comme nts CHOLESTEROL, TOTAL; Above High Threshold (test code = 2093-3) 291 mg/dl <200 HDL CHOLESTEROL; Below Low Threshold (test code = 2085-9) 46 mg/dl > OR = 50 TRIGLYCERIDES; Above High Threshold (test code = 2571-8) 726 mg/dl <150 If a non-fasting specimen was collected, considerrepeat triglyceride testing on a fasting specimenif clinically indicated. Debbi et al. J. of Clin. Lipidol. 2015;9:129-169. There is increased risk of pancreatitis when the triglyceride concentration is very high (> or = 500 mg/dL, especially if > or = 1000 mg/dL). Debbi et al. J. of Clin. Lipidol. 2015;9:129-169. LDL-CHOLESTEROL (test code = 30074-2) See Comment LDL cholesterol not calculated. Triglyceride levelsgreater than 400 mg/dL invalidate calculated LDL results. Reference range: <100 Desirable range <100 mg/dL for primary prevention; <70 mg/dL for patients with CHD or diabetic patients with > or = 2 CHD risk factors. LDL-C is now calculated using the Clifford-Inés calculation, which is a validated novel method providing better accuracy than the Friedewald equation in the estimation of LDL-C. Clifford CHUN et al. LIZZY. 2013;310(19): 3702-0456 (http://education.Garmor/faq/GJE352) CHOL/HDLC RATIO (test code = CHOL/HDLC RATIO) 6.3 {CALC} <5.0 NON HDL CHOLESTEROL (test code = NON HDL CHOLESTEROL) 245 {MG/DL OLE} <130 Non-HDL level > or = 220 is very high and may indicate genetic familial hypercholesterolemia (FH). Clinical assessment and measurement of blood lipid levels should be considered for all first-degree relatives of patients with an FH diagnosis. For patients with diabetes plus 1 major ASCVD risk factor, treating to a non-HDL-C goal of <100 mg/dL (LDL-C of <70 mg/dL) is considered a therapeutic option. [facility][QL] HEPATITIS [id number] 00:00:00* Test Item Value Reference Range Interpretation Comme nts HEPATITIS A AB, TOTAL; Abnormal (test code = 79516-4) REACTIVE NON-REACTIVE A For additional information, please refer to http://education.Pitchbrite tdiagnostics.com/faq/ PZQ837 (This link is being provided for informational/educati onal purposes only.) HEPATITIS B SURFACE ANTIBODY QL; Normal (test code = 52368-1) NON-REACTIVE NON-REACTIVE N HEPATITIS B SURFACE ANTIGEN; Normal (test code = 5195-3) NON-REACTIVE NON-REACTIVE N HEPATITIS B CORE AB TOTAL; Normal (test code = 97449-1) NON-REACTIVE NON-REACTIVE N HEPATITIS C ANTIBODY; Normal (test code = 82854-2) NON-REACTIVE NON-REACTIVE N SIGNAL TO CUT-OFF (test code = SIGNAL TO CUT-OFF) 0.01 <1.00 N HCV antibody was non-reactive. There is no laboratory evidence of HCV infection. In most cases, no further action is required. However,if recent HCV exposure is suspected, a test for HCV RNA(test code 19807) is suggested. For additional information please refer tohttp://education.Insitu Mobile/fa q/MRT03o0(This link is being provided for informational/educati onal purposes only.) [facility][Q] HIV AB, HIV 1/2, EIA, WITH [id number] 00:00:00* Test Item Value Reference Range Interpretation Comme nts HIV AG/AB, 4TH GEN; Normal (test code = 20783-1) NON-REACTIVE NON-REACTIVE N HIV-1 antigen an d HIV-1/HIV-2 antibodies were notdetected. There is no laboratory evidence of HIVinfection. PLEASE NOTE: This information has been disclosed toyou from records whose confidentiality may beprotected by state law. If your state requires suchprotection, then the state law prohibits you frommaking any further disclosure of the informationwithout the specific written consent of the personto whom it pertains, or as otherwise permitted by law.A general authorization for the release of medical orother information is NOT sufficient for this purpose. For additional information please refer tohttp://education.Xymogen/faq/BZY340(Thi s link is being provided for informational/educational purposes only.) The performance of this assay has not been clinicallyvalidated in patients less than 2 years old. [facility][QL] CMP [id number] 00:00:00* Test Item Value Reference Range Interpretation Comme nts GLUCOSE; Above High Threshold (test code = 1547-9) 254 mg/dl 65-99 Fasting referenc e interval For someone without known diabetes, a glucosevalue >125 mg/dL indicates that they may havediabetes and this should be confirmed with afollow-up test. UREA NITROGEN (BUN) (test code = UREA NITROGEN (BUN)) 13 mg/dl 7-25 N CREATININE (test code = CREATININE) 0.74 mg/dl 0.50-1.05 N For patients >49 years of age, the reference limitfor Creatinine is approximately 13% higher for peopleidentified as -[place]. eGFR NON-AFR. TURKMEN (test code = eGFR NON-AFR. TURKMEN) 92 {ML/MIN/1.7} > OR = 60 N eGFR (test code = eGFR ) 106 {ML/MIN/1.7} > OR = 60 N BUN/CREATININE RATIO (test code = BUN/CREATININE RATIO) NOT APPLICABLE 6-22 SODIUM (test code = SODIUM) 138 mmol/L 135-146 N POTASSIUM (test code = POTASSIUM) 3.9 mmol/L 3.5-5.3 N CHLORIDE (test code = CHLORIDE) 100 mmol/L 98-110 N CARBON DIOXIDE (test code = CARBON DIOXIDE) 24 mmol/L 20-32 N CALCIUM (test code = CALCIUM) 9.5 mg/dl 8.6-10.4 N PROTEIN, TOTAL (test code = PROTEIN, TOTAL) 6.7 g/dl 6.1-8.1 N ALBUMIN (test code = ALBUMIN) 4.4 g/dl 3.6-5.1 N GLOBULIN (test code = GLOBULIN) 2.3 {G/DL CALC} 1.9-3.7 N ALBUMIN/GLOBULIN RATIO (test code = ALBUMIN/GLOBULIN RATIO) 1.9 {CALC} 1.0-2.5 N BILIRUBIN, TOTAL; Normal (test code = 69223-0) 0.3 mg/dl 0.2-1.2 N ALKALINE PHOSPHATASE (test code = ALKALINE PHOSPHATASE) 88 u/l 37-153 N AST; Normal (test code = 1916-6) 14 u/l 10-35 N ALT; Normal (test code = 1742-6) 17 u/l 6-29 N [facility][QL] CBC (INCLUDES DIFF/PLT)2020-10-22 00:00:00* Test Item Value Reference Range Interpretation Comme nts WHITE BLOOD CELL COUNT (test code = WHITE BLOOD CELL COUNT) 11.5 {Thousand/u} 3.8-10.8 RED BLOOD CELL COUNT (test code = RED BLOOD CELL COUNT) 5.31 {Million/uL} 3.80-5.10 HEMOGLOBIN; Above High Threshold (test code = 41744-5) 16.4 g/dl 11.7-15.5 HEMATOCRIT; Above High Threshold (test code = 4544-3) 48.2 % 35.0-45.0 MCV; Normal (test code = 787-2) 90.8 fL 80.0-100.0 N MCHC; Normal (test code = 61360-7) 34.0 g/dl 32.0-36.0 N RDW; Normal (test code = 788-0) 12.6 % 11.0-15.0 N PLATELET COUNT; Normal (test code = 777-3) 253 {Thousand/u} 140-400 N MPV; Above High Threshold (test code = 86357-7) 12.8 fL 7.5-12.5 ABSOLUTE NEUTROPHILS (test code = ABSOLUTE NEUTROPHILS) 5865 {cells/uL} 5080-2259 N ABSOLUTE LYMPHOCYTES (test code = ABSOLUTE LYMPHOCYTES) 4635 {cells/uL} 850-3900 ABSOLUTE MONOCYTES (test code = ABSOLUTE MONOCYTES) 713 {cells/uL} 200-950 N ABSOLUTE EOSINOPHILS (test code = ABSOLUTE EOSINOPHILS) 230 {cells/uL} 15-500 N ABSOLUTE BASOPHILS (test code = ABSOLUTE BASOPHILS) 58 {cells/uL} 0-200 N NEUTROPHILS (test code = NEUTROPHILS) 51 % N LYMPHOCYTES (test code = LYMPHOCYTES) 40.3 % N MONOCYTES; Normal (test code = 48411-7) 6.2 % N EOSINOPHILS; Normal (test code = 41128-0) 2.0 % N BASOPHILS; Normal (test code = 57663-1) 0.5 % N [facility][QL] TSH, 3RD GENERATION W/REFLEX TO [id number] 00:00:00* Test Item Value Reference Range Interpretation Comme nts TSH, 3RD GENERATION W/REFLEX TO FT4 (test code = TSH, 3RD GENERATION W/REFLEX TO FT4) 3.35 {MIU/L} N Reference Range > or = 20 Years 0.40-4.50 Ranges First trimester 0.26-2.66 Second trimester 0.55-2.73 Third trimester 0.43-2.91 [facility][QL] HEMOGLOBIN [id number] 00:00:00* Test Item Value Reference Range Interpretation Comme nts HEMOGLOBIN A1c; Above High Threshold (test code = 4548-4) 12.9 {% of total} <5.7 For someone without known diabetes, a hemoglobin [id number] of 6.5% or greater indicates that they may have diabetes and this should be confirmed with a follow-up test. For someone with known diabetes, a value <7% indicates that their diabetes is well controlled and a value greater than or equal to 7% indicates suboptimal control. A1c targets should be individualized based on duration of diabetes, age, comorbid conditions, and other considerations. Currently, no consensus exists regarding use ofhemoglobin A1c for diagnosis of diabetes for children. [facility] Notes Date/Time Note Provider Source 2024-08-18 10:29:55 Chief Complaint Patient presents with Consultation Diabetes Fasting Blood sugar 85 Danika Arenas CMA II [facility] 2024-06-03 07:59:11 Chief Complaint Patient presents with Physical Fasting for labs Lily Barrett LVN [facility] 2024-05-06 09:04:42 Chief Complaint Patient presents with REFILLS-NURSE/MD Refill all medications Imani Jones MA II [facility]
[2024-09-11] MEDS ORDERED: HYDROMORPHONE HCL 1 MG/ML INJ ONE (13:37)
[2024-09-11] MEDS ORDERED: ONDANSETRON 4 MG/2 ML VIAL ONE ×2 (13:37→17:59)
[2024-09-11] MEDS ORDERED: NA CHLORIDE 0.9% 1,000 ML ONE (13:37)
[2024-09-11 14:16] LABS: Absolute Lymphocytes (CBC) 0.4 K/uL (0.7-4.9); Absolute Monocytes 0.7 K/uL (0.1-1.3); Absolute Neutrophil 18.1 K/uL (1.8-8.0); Basophils % 0.2 % (0-1.3); Eosinophils % 0.1 % (0-4.4); Hemoglobin 14.5 g/dL (12.0-15.0); Lymphocytes % 2.2 % (15.3-44.8); MCH 31.3 pg (27.0-35.0); MCV 94.9 fL (80-100); MPV 9.5 fL (7.6-11.3); Monocytes % 3.7 % (3.3-12.3); Neutrophils % 93.8 % (41.7-73.7); Platelets 167 thou/uL (152-406); RBC Red Blood Cell Count 4.63 M/uL (3.86-4.86); Red Cell Distribution Width 13.2 % (12.1-15.2)
[2024-09-11 14:36] LABS: Albumin 3.2 g/dL (3.4-5.0); Albumin/Globulin Ratio 0.9 (1.1-1.8); Anion Gap 9.2 mEq/L (5.0-15.0); Bilirubin Total 0.7 mg/dL (0.2-1.0); Globulin 3.6 g/dL (2.3-3.5); Potassium 3.2 mEq/L (3.5-5.1); Protein, Total 6.8 g/dL (6.4-8.2)
--- NOTE | 2024-09-11 15:11 | RAD REPORT ---
EXAMINATION: CT ABDOMEN AND PELVIS WITH CONTRAST CLINICAL INDICATION: Female, 59 years old.ABD PAIN TECHNIQUE: CT abdomen and pelvis was performed, after the administration of IV contrast, [facility]. Axial, sagittal and coronal reconstructions were obtained. One or more of the following dose reduction techniques were used: Automated exposure control, adjustment of the mA and/o r kV according to patient size, and/or iterative reconstruction. Unless otherwise specified, incidental findings do not require dedicated imaging follow-up. [id number]. COMPARISON: No prior exam. FINDINGS: LOWER CHEST: The visualized lung bases are clear. LIVER: Normal in size and contour. No focal lesion. GALLBLADDER/BILE DUCT: No biliary ductal dilatation.? PANCREAS: No significant abnormality. SPLEEN: Normal size. No focal lesion. ADRENALS: Normal; no mass. KIDNEYS AND URETERS: Normal size and contour. No hydronephrosis. Early excretion of contrast in the k idneys. No definite stones.. Subcentimeter right upper pole renal cyst. GASTROINTESTINAL TRACT: Stomach is non-dilated. . The base of the appendix is thickened with mild str anding. The tip is normal caliber. PERITONEUM: No ascites. LYMPH NODES: No lymphadenopathy. ABDOMINAL AORTA AND OTHER VESSELS: Normal caliber aorta and IVC. Atherosclerosis URINARY BLADDER: Normal contour. REPRODUCTIVE ORGANS: No pathologic process MUSCULOSKELETAL: No acute or suspicious osseous abnormality. ADDITIONAL FINDINGS: None. IMPRESSION: Mild thickening and stranding present at the base of the appendix could represent early or mild acute appendicitis in the appropriate clinical setting. No other acute findings identified.
--- NOTE | 2024-09-11 15:19 | ER ---
Nurse's Notes [facility] Name: Shahana Nobles Age: 59 yrs Sex: Female : 1965 Arrival Date: 09/11/2024 Time: 13:28 Bed 3 Private MD: Diagnosis: Abdominal pain, appendicitis Presentation: 09/11 13:30 Chief complaint: EMS states: toned out for abdominal pain that hurts all the way across me1 the upper abdomen, n/v x 3 days. Coronavirus screen: Vaccine status: Patient reports being unvaccinated. Ebola Screen: No symptoms or risks identified at this time. Initial Sepsis Screen: Does the patient meet any 2 criteria? No. Patient's initial sepsis screen is negative. Does the patient have a suspected source of infection? No. Patient's initial sepsis screen is negative. Risk Assessment: Do you want to hurt yourself or someone else? Patient reports no desire to harm self or others. Onset of symptoms was September 09, 2024. Care prior to arrival: IV initiated. 22 GA, in the left wrist. 13:30 Method Of Arrival: EMS: [facility] 13:30 Acuity: FELICIA 3 me1 Triage Assessment: 13:32 General: Appears uncomfortable, ill, well groomed, well developed, well nourished, me1 Behavior is calm, cooperative, appropriate for age. Pain: Complains of pain in right upper quadrant and left upper quadrant Pain does not radiate. Pain currently is 7 out of 10 on a pain scale. Quality of pain is described as crampy, Pain began 2-3 days ago. Is continuous. EENT: No signs and/or symptoms were reported regarding the EENT system. Neuro: Level of Consciousness is awake, alert, obeys commands, Oriented to person, place, time, situation, Appropriate for age. Cardiovascular: Patient's skin is warm and dry. Respiratory: Airway is patent Respiratory effort is even, unlabored, Respiratory pattern is regular, symmetrical. GI: Reports nausea, vomiting, since 3 days ago. : No signs and/or symptoms were reported regarding the genitourinary system. Derm: Skin is intact, is healthy with good turgor, Skin is pink, warm \T\ dry. Musculoskeletal: No signs and/or symptoms reported regarding the musculoskeletal system. Historical: - Allergies: 13:32 Lisinopril; me1 13:32 Metformin HCl; me1 13:32 concrete dust; me1 - PSHx: 13:32 None; me1 - Immunization history:: Adult Immunizations up to date. - Infectious Disease History:: Denies. - Social history:: Smoking status: Patient reports the use of cigarette tobacco products, smokes one pack cigarettes per day. Screenin:34 [facility] ED Fall Risk Assessment (Adult) History of falling in the last 3 months, me1 including since admission No falls in past 3 months (0 pts) Confusion or Disorientation No (0 pts) Intoxicated or Sedated No (0 pts) Impaired Gait No (0 pts) Mobility Assist Device Used No (0 pt) Altered Elimination No (0 pt) Score/Fall Risk Level 0 - 2 = Low Risk Maintained a safe environment, Provided non-skid footwear, Hourly rounding (assess needs \T\ fall precautionary measures) done. Abuse screen: Denies threats or abuse. Nutritional screening: No deficits noted. Tuberculosis screening: No symptoms or risk factors identified. Assessment: 13:34 General: See triage assessment. . me1 16:24 GI: Abd is soft X 4 quads. me1 16:26 GI: Bowel sounds present X 4 quads. me1 Vital Signs: 13:30 BP 144 / 76; Pulse 82; Resp 16; Temp 98.3; Pulse Ox 100% ; Weight 81.65 kg; Height 5 me1 ft. 3 in. ; Pain 7/10; 14:06 BP 107 / 59; Pulse 79; Resp 16; Pulse Ox 96% ; me1 15:00 BP 111 / 70; Pulse 81; Resp 16; Pulse Ox 99% ; me1 16:00 BP 92 / 53; Pulse 75; Resp 16; Pulse Ox 92% ; me1 13:30 Body Mass Index 31.89 (81.65 kg, 160.02 cm) me1 13:30 Pain Scale: Adult me1 ED Course: 13:30 Patient arrived in ED. me1 13:30 Navi Yo MD is Attending Physician. sp3 13:32 Triage completed. me1 13:32 Arm band placed on Patient placed in an exam room. me1 13:34 Patient has correct armband on for positive identification. Bed in low position. Call me1 light in reach. Side rails up X 1. Provided Education on: POC. Verbalized understanding. . Client placed on continuous cardiac and pulse oximetry monitoring. NIBP monitoring applied. Pulse ox on. NIBP on. 13:34 No provider procedures requiring assistance completed. Maintain EMS IV. Dressing me1 intact. Good blood return noted. Site clean \T\ dry. Gauge \T\ site: 22 L wrist. Flushed with 10 mL NS. 13:44 Zeenat Rayo, RN is Primary Nurse. me1 13:45 CBC with Diff Sent. me1 13:45 CMP Sent. me1 13:45 Lipase Sent. me1 14:14 Inserted saline lock: 22 gauge in left antecubital area, using aseptic technique. me1 14:57 CT Abd/Pelvis - IV Contrast Only In Process Unspecified. EDMS 15:14 Surgeon CALLED AND CONNECTED DR. ADHIKARI WITH DR. YO FOR PATIENT CONSULTATION. eb 15:19 Reinaldo Kimball MD is Hospitalizing Provider. sp3 16:25 Patient admitted, IV remains in place. me1 Administered Medications: 13:44 Drug: Ondansetron IVP 4 mg IVP once; over 2 minutes Route: IVP; Site: left wrist; me1 13:46 Follow up: Response: No adverse reaction; Nausea is decreased me1 13:44 Drug: NS 0.9% IV 1000 ml IV at 1 bolus Per protocol; to be given as a bolus over 60 me1 minutes Route: IV; Rate: 1 bolus; Site: left wrist; 15:28 Follow up: Response: No adverse reaction; IV Status: Completed infusion; IV Intake: me1 1000ml 13:45 Drug: HYDROmorphone IVP 1 mg IVP once Route: IVP; Site: left wrist; me1 14:15 Follow up: Response: No adverse reaction; Pain is decreased me1 15:40 Drug: Piperacillin-Tazobactam IVPB 3.375 grams IVPB once over 60 mins; (mix in NS 100 me1 mL) Route: IVPB; Infused Over: 60 mins; Site: left wrist; 16:26 Follow up: IV Status: Infusion continued upon admission me1 Medication: 13:34 VIS not applicable for this client. me1 Intake: 15:28 IV: 1000ml; Total: 1000ml. me1 Outcome: 15:19 Decision to Hospitalize by Provider. sp3 16:25 [place] [facility] [place] 16:25 Admitted to OR accompanied by nurse, via wheelchair, with chart, Report called to [place] [facility] [place] 16: Condition: stable 16:25 Instructed on the need for admit, 16:26 Patient left the ED. [facility] [place] Signatures: Dispatcher [employer] EDJennifer Cerda Setul, MD MD sp3 Zeenat Rayo RN RN [facility] [place] Corrections: (The following items were deleted from the chart) 16: 13:34 General: POC. Verbalized understanding. . [place] [id number] 16:24 16:24 General: ks1 [facility] [place] 16: 16:25 Patient transferred, IV remains in place. [place] [id number]
--- NOTE | 2024-09-11 15:19 | EDPHYS ---
Physician Documentation [facility] Name: Shahana Nobles Age: 59 yrs Sex: Female : 1965 Arrival Date: 09/11/2024 Time: 13:28 Bed 3 Private MD: ED Physician Navi Yo HPI: 09/11 13:37 This 59 yrs old Female presents to ER via EMS with complaints of Abdominal Pain, sp3 Nausea/Vomiting. 13:37 59-year-old female with history of diabetes and hypertension presents with 3 days of sp3 abdominal pain after "eating some pork from [facility]". Pain is epigastric and now patient is having vomiting as well. She denies any significant surgical history. Review systems negative for headache, fever, back pain, chest pain, shortness of breath, rash, syncope, near syncope, prolonged immobilization, travel history, or any other signs or symptoms on ROS at this time.. Historical: - Allergies: 13:32 Lisinopril; me1 13:32 Metformin HCl; me1 13:32 concrete dust; me1 - PSHx: 13:32 None; me1 - Immunization history:: Adult Immunizations up to date. - Infectious Disease History:: Denies. - Social history:: Smoking status: Patient reports the use of cigarette tobacco products, smokes one pack cigarettes per day. ROS: 13:37 Constitutional: Negative for fever, chills, and weight loss, Eyes: Negative for injury, sp3 pain, redness, and discharge, Neck: Negative for injury, pain, and swelling, Cardiovascular: Negative for chest pain, palpitations, and edema, Respiratory: Negative for shortness of breath, cough, wheezing, and pleuritic chest pain, Back: Negative for injury and pain, MS/Extremity: Negative for injury and deformity, Skin: Negative for injury, rash, and discoloration, Neuro: Negative for headache, weakness, numbness, tingling, and seizure, Psych: Negative for depression, anxiety, suicide ideation, homicidal ideation, and hallucinations, Allergy/Immunology: Negative for hives, rash, and allergies, Endocrine: Negative for neck swelling, polydipsia, polyuria, polyphagia, and marked weight changes, Hematologic/Lymphatic: Negative for swollen nodes, abnormal bleeding, and unusual bruising, 13:37 All other systems are negative, Exam: 13:38 Constitutional: This is a well developed, well nourished patient who is awake, alert, sp3 and in no acute distress. Head/Face: Normocephalic, atraumatic. Eyes: Pupils equal round and reactive to light, extra-ocular motions intact. Lids and lashes normal. Conjunctiva and sclera are non-icteric and not injected. Cornea within normal limits. Periorbital areas with no swelling, redness, or edema. ENT: Nares patent. No nasal discharge, no septal abnormalities noted. External auditory canals are clear. Oropharynx with no redness, swelling, or masses, exudates, or evidence of obstruction, uvula midline. Mucous membranes moist. Neck: Trachea midline, no thyromegaly or masses palpated, and no cervical lymphadenopathy. Supple, full range of motion without nuchal rigidity, or vertebral point tenderness. No Meningismus. Chest/axilla: Normal chest wall appearance and motion. Nontender with no deformity. No lesions are appreciated. Cardiovascular: Regular rate and rhythm with a normal S1 and S2. No gallops, murmurs, or rubs. Normal PMI, no JVD. No pulse deficits. Respiratory: Lungs have equal breath sounds bilaterally, clear to auscultation and percussion. No rales, rhonchi or wheezes noted. No increased work of breathing, no retractions or nasal flaring. Back: No spinal tenderness. No costovertebral tenderness. Full range of motion. Skin: Warm, dry with normal turgor. Normal color with no rashes, no lesions, and no evidence of cellulitis. MS/ Extremity: Pulses equal, no cyanosis. Neurovascular intact. Full, normal range of motion. Neuro: Awake and alert, GCS 15, oriented to person, place, time, and situation. Cranial nerves II-XII grossly intact. Motor strength 5/5 in all extremities. Sensory grossly intact. Cerebellar exam normal. Normal gait. Psych: Awake, alert, with orientation to person, place and time. Behavior, mood, and affect are within normal limits. 13:38 Abdomen/GI: Active emesis without blood or mucus. Epigastric pain to palpation noted without peritoneal signs, rebound or guarding., Vital Signs: 13:30 BP 144 / 76; Pulse 82; Resp 16; Temp 98.3; Pulse Ox 100% ; Weight 81.65 kg; Height 5 me1 ft. 3 in. ; Pain 7/10; 14:06 BP 107 / 59; Pulse 79; Resp 16; Pulse Ox 96% ; me1 15:00 BP 111 / 70; Pulse 81; Resp 16; Pulse Ox 99% ; me1 16:00 BP 92 / 53; Pulse 75; Resp 16; Pulse Ox 92% ; me1 13:30 Body Mass Index 31.89 (81.65 kg, 160.02 cm) ri1 13:30 Pain Scale: Adult me1 MDM: 13:35 Medical Screening Exam initiated sp3 13:38 Data reviewed: vital signs, nurses notes, lab test result(s), radiologic studies. ED sp3 course: 59-year-old female with abdominal pain with vomiting. Differential diagnosis includes foodborne illness, biliary pathology including cholecystitis, pancreatitis, gastritis, colitis, among others. I am not highly suspicious of ACS, aortic pathology, or any other critical illness. Workup will include labs, UA, CT scan of the abdomen pelvis and treatment with normal saline, Dilaudid and Zofran IV for symptomatic control. Disposition pending workup and patient course.. 15:18 ED course: CT demonstrates appendicitis. Patient also has a leukocytosis. Zosyn given sp3 IV. Dr. Tolbert to take patient to the OR.. 09/11 13:37 Order name: CBC with Diff sp3 09/11 13:37 Order name: CMP; Complete Time: 15:03 sp3 09/11 13:37 Order name: Lipase; Complete Time: 15:03 sp3 09/11 13:37 Order name: Test, Urine sp3 09/11 13:37 Order name: Urinalysis w/ reflexes sp3 09/11 16:20 Order name: Urinalysis w/ reflexes EDMS 09/11 16:20 Order name: Basic Metabolic Panel EDMS 09/11 16:20 Order name: Basic Metabolic Panel EDMS 09/11 16:20 Order name: CBC with Automated Diff EDMS 09/11 16:20 Order name: CBC with Automated Diff EDMS 09/11 16:20 Order name: Magnesium EDMS 09/11 16:20 Order name: Magnesium EDMS 09/11 13:37 Order name: CT Abd/Pelvis - IV Contrast Only; Complete Time: 15:12 sp3 09/11 16:20 Order name: CONS Physician Consult EDMS 09/11 13:37 Order name: IV Saline Lock; Complete Time: 13:45 sp3 09/11 13:37 Order name: Labs collected and sent; Complete Time: 13:45 sp3 09/11 15:15 Order name: NPO; Complete Time: 15:34 sp3 Administered Medications: 13:44 Drug: Ondansetron IVP 4 mg IVP once; over 2 minutes Route: IVP; Site: left wrist; me1 13:46 Follow up: Response: No adverse reaction; Nausea is decreased me1 13:44 Drug: NS 0.9% IV 1000 ml IV at 1 bolus Per protocol; to be given as a bolus over 60 me1 minutes Route: IV; Rate: 1 bolus; Site: left wrist; 15:28 Follow up: Response: No adverse reaction; IV Status: Completed infusion; IV Intake: me1 1000ml 13:45 Drug: HYDROmorphone IVP 1 mg IVP once Route: IVP; Site: left wrist; me1 14:15 Follow up: Response: No adverse reaction; Pain is decreased me1 15:40 Drug: Piperacillin-Tazobactam IVPB 3.375 grams IVPB once over 60 mins; (mix in NS 100 me1 mL) Route: IVPB; Infused Over: 60 mins; Site: left wrist; 16:26 Follow up: IV Status: Infusion continued upon admission me1 Disposition Summary: 09/11/24 15:19 Hospitalization Ordered Notes: Hospitalization Status: Inpatient Admission sp3 Provider: Reinaldo Kimball spGokul [facility] sp3 Condition: Stable sp3 Problem: new sp3 Symptoms: have worsened sp3 Bed/Room Type: Standard sp3 Room Assignment: sp3 Diagnosis - Abdominal pain, appendicitis sp3 Forms: - Medication Reconciliation Form sp3 - SBAR form sp3 - Leadership Thank You Letter sp3 Signatures: Dispatcher [employer] EDNavi Olguin MD MD sp3 Zeenat Rayo RN RN me1 Corrections: (The following items were deleted from the chart) 13:37 13:37 Abdomen Pelvis W Con+CT.RAD.BRZ ordered. EDWI EDMS
[2024-09-11] MEDS ORDERED: NA CHLORIDE 0.9% 100 ML ONE (15:30)
[2024-09-11] MEDS ORDERED: PIPERACIL/TAZO 3.375 GM VIAL IV ONE (15:30)
--- NOTE | 2024-09-11 16:13 | P.HP ---
Certification for Inpatient Patient admitted to: Observation Practitioner: I am a practitioner with admitting privileges, knowledge of patient current condition, hospital course, and medical plan of care. Services: Services provided to patient in accordance with Admission requirements found in Title 42 Section 412.3 of the Code of Federal Regulations Patient History Date of Service: 09/11/24 Reason for admission: Appendicitis History of Present Illness: 59-year-old female with a past medical history of hypertension, diabetes, depression, tobacco use, presents to the emergency with abdominal pain. She reports abdominal pain started 3 days ago, she reports associated nausea vomiting, she reports pain worse with p.o. intake, she thinks abdominal pain was related to eating pork from [facility]. No reported chest pain, shortness of breath, fever, plan to admit for appendicitis with surgery to consult. ER evaluation IMPRESSION: Mild hyponatremia 133, mild hypokalemia 3.2, blood glucose 235, leukocytosis, WBCs 19.40, CT of the abdomen pelvis mild thickening and stranding present at the base of the appendix could represent early or mild acute appendicitis in the appropriate clinical setting. No other acute findings identified. Allergies lisinopril Adverse Reaction (Verified 09/11/24 16:35) metformin Adverse Reaction (Verified 09/11/24 16:35) [place] dust Adverse Reaction (Uncoded 09/11/24 16:35) - Past Medical/Surgical History -: Diabetes -: Hypertension -: Hyperlipidemia -: Depression -: No reported surgery - Social History Smoking Status: Current every day smoker Alcohol use: No CD- Drugs: No Caffeine use: Yes Place of Residence: Home Review of Systems 10-point ROS is otherwise unremarkable General: As per HPI Physical Examination - Physical Exam General: Alert, Oriented x3, Mild distress HEENT: Atraumatic, Normocephalic Neck: Supple, JVD not distended Respiratory: Clear to auscultation bilaterally, Normal air movement Cardiovascular: No edema, Normal pulses, Regular rate/rhythm Capillary refill: <2 Seconds Gastrointestinal: Other (Epigastric abdominal tenderness, generalized tenderness), Tenderness (Right lower quadrant) Musculoskeletal: No swelling, No contractures Integumentary: No breakdown, No significant lesion Neurological: Normal speech, Normal strength at 5/5 x4 extr, Cranial nerves 3-12 intact - Studies Laboratory Data (last 24 hrs) 11/03/24 11/03/24 14:08 14:08 WBC 19.40 H Hgb 14.5 Hct 44.0 Plt Count 167 Sodium 133 L Potassium 3.2 L BUN 16 Creatinine 1.00 Glucose 235 H Total Bilirubin 0.7 AST 15 ALT 25 Alkaline Phosphatase 59 Lipase 34 Assessment and Plan - Problems (Diagnosis) (1) Abdominal pain Current Visit: Yes Status: Acute (2) Hypertension Current Visit: Yes Status: Acute (3) Diabetes Current Visit: Yes Status: Acute Qualifiers: Diabetes mellitus type: type 2 Diabetes mellitus usp insulin 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 IV antibiotics, as needed analgesics, as needed antiemetics, nicotine patch Resume home antihypertensives, antilipidemia, resume home antidepressant Accu-Chek ACHS, sliding scale insulin, A1c in the a.m. Tobacco use, educated on tobacco cessation Full code DVT SCDs Diet advance diabetic when tolerating p.o. Discharge Plan: Home - Advance Directives Does patient have a Living Will: No Does patient have a Durable POA for Healthcare: No - Code Status/Comfort Care Code Status: Full Code Critical Care: No Time Spent Managing Pts Care (In Minutes): 55
[2024-09-11] MEDS ORDERED: ALPRAZOLAM 0.25 MG TABLET PO PRN (16:16)
[2024-09-11] MEDS ORDERED: ONDANSETRON 4 MG/2 ML VIAL IV PRN (16:16)
[2024-09-11] MEDS: PIPER TAZO 3.375 GM in NA CHLORIDE 0.9% 100 ML IV SCH (16:18)
[2024-09-11] MEDS ORDERED: HYDROMORPHONE HCL 0.5 MG/0.5 ML INJ IV PRN (16:18)
[2024-09-11] MEDS ORDERED: HYDROCODONE/APAP 5/325 MG TAB PO PRN (16:19)
[2024-09-11] MEDS: INSULIN REGULAR (HUMAN) 100 UNIT/ML SQ SCH (16:30)
[2024-09-11] MEDS: NA CHLORIDE 0.9% 1,000 ML ONE ×2 (16:38→18:00)
[2024-09-11] MEDS: SUCCINYLCHOLINE 20 MG/ML (10 ML) IV ONE (17:00)
[2024-09-11] MEDS: NA CHLORIDE 0.9% 1,000 ML IV SCH (17:00)
[2024-09-11] MEDS ORDERED: MIDAZOLAM HCL 2 MG/2 ML INJ ONE (17:02)
[2024-09-11] MEDS ORDERED: ROCURONIUM 50 MG/5 ML VIAL IV ONE (17:02)
[2024-09-11] MEDS ORDERED: FENTANYL CITR 100 MCG/2 ML ONE (17:02)
[2024-09-11] MEDS ORDERED: propofoL 200 MG/20 ML VIAL IV ONE (17:02)
--- NOTE | 2024-09-11 17:13 | P.HP ---
Date of Service: 09/11/24 PC: This 59-year-old female presented to the emergency room with a 3-day history of right lower quadrant abdominal pain for diagnosis and treatment. HPC: Patient is not well for the last 3 days. Thought it was because of something she ate. Pain has been intensifying because seeing her more discomfort. She lives alone, was started to become fearful, and called 911. Has been associated with nausea and vomiting. PSHx: AD PMHx: Diabetes, controlled with oral medication Social Hx: States she is allergic to lisinopril and metformin as well as concrete dust Sys R: No cough, wheeze, shortness of breath. No chest pain or palpitations. Has no urinary complaints, but is noted she has not been is urinating as much as she used to. O/E: Awake alert vital signs are stable HEENT: Not jaundiced Chest: Air entry equal bilaterally Abd: Tender in the right lower quadrant with mild guarding [place]: Intact Data: Elevated white cell count with a left shift, CT scan supports clinical diagnosis of acute appendicitis Impression: Acute abdomen with appendicitis Plan: I will taken the operating room for laparoscopic possible open appendectomy. The risks of this procedure have been discussed. The possibility of bleeding, infection, injury to bowel and surrounding structures were outlined. The possible need for an open and/or further surgeries and procedures were described. She understands and wants us to proceed.
[2024-09-11 17:14] LABS: Blood Morphology Comment NOT SEEN (NOT SEEN); Platelet Estimate ADEQ; White Blood Cell Scan OK (OK)
[2024-09-11 17:21] LABS: Specific Gravity > 1.030 (1.005-1.030)
[2024-09-11 17:23] LABS: Specific Gravity > 1.030 (1.005-1.030); Sqamous Epithelial <5 /HPF (None Seen); Urine Bacteria None Seen /HPF (<20); Urine Bilirubin NEGATIVE (Negative); Urine Blood Trace (Negative); Urine Clarity Clear (Clear); Urine Color Light-Yellow (Yellow); Urine Culture Reflex Order NOT NEEDED; Urine Glucose 2+ (Negative); Urine Ketones 3+ (Negative); Urine Microscopic Reflex YN ORDER UMIC; Urine Nitrite NEGATIVE (Negative); Urine Protein 1+ (Negative); Urine Urobilinogen Normal (Normal); Urine WBC <5 /HPF (<5); Urine Yeast (Budding) Trace /HPF (None Seen)
[2024-09-11] MEDS ORDERED: NEOSTIGMINE 1 MG/ML -10 ML VIAL ONE (17:55)
[2024-09-11] MEDS ORDERED: GLYCOPYRROLATE 0.2 MG/ML SYR ONE (17:55)
[2024-09-11] MEDS ORDERED: dexAMETHasone 4 MG/ML VIAL ONE (17:59)
--- NOTE | 2024-09-11 18:11 | P.OP ---
Preoperative diagnosis: . Acute abdomen with appendicitis Postoperative diagnosis: Appendicitis acute [not ruptured] Primary procedure: Laparoscopic appendectomy Anesthesia: General Estimated blood loss: Less than 10 cc Specimen: 1 appendix sent for histologic exam Operative Technique: The patient brought the operating room and placed supine on the table. After the induction of adequate general endotracheal anesthesia, the area of the abdomen was prepped with a DuraPrep solution, she was draped in the usual aseptic manner. A subumbilical incision was made. This is brought down through the skin and subcutaneous tissue. The Visiport was now used to enter the peritoneal cavity and created pneumoperitoneum to approximately 12 mmHg. Under direct vision a 5 mm trocar was placed on the right lateral side of the abdomen, and another in the suprapubic area. Under direct vision we were able to visualize the right lower quadrant. With the patient airplane to the left and placed in Trendelenburg we could see the right lower quadrant. There was a very obvious acute appendix. This was traced back to his base at the junction of the cecum. Holding the appendix were able to make a window in the mesentery of the appendix. After changing the 10 to a 12 trocar at the umbilicus, a linear stapler was now introduced into the peritoneal cavity. It was placed across the base of the appendix and fired. The instrument was removed. We continued our dissection of the mesentery of the appendix, using judicious use of electrocautery. We were able to completely dissect out the appendix, having detached it was placed into an Endo Catch and brought out through the umbilical trocar site. The abdomen was now once inspected for adequate hemostasis. This having been done the umbilical trocar site was approximated using the Endo Close and an absorbable suture. The pneumoperitoneum was collapsed, the suture tied, and the trocars removed. At the end of the procedure the patient was in a stable condition when sent to the recovery room. Needle sponge instrument count were correct. No drains were placed. Ben were used to close the skin.
[2024-09-11] MEDS ORDERED: MORPHINE 4 MG/ML SYR IV PRN (18:28)
[2024-09-11] MEDS: KCL 20 MEQ/100 mL IVPB 20 MEQ/100 ML BAG IV SCH (19:00)
[2024-09-11] MEDS: ROSUVASTATIN 10 MG TAB PO SCH (20:07)
[2024-09-11 20:14] VITALS: BMI 32.6
[2024-09-11] MEDS: LIDOCAINE 100 MG/5 ML SYRINGE IV ONE (21:51)
[2024-09-12] MEDS: HYDROCODONE/APAP 7.5/325 MG TAB PO PRN (04:27)
[2024-09-12 05:18] LABS: Absolute Lymphocytes (CBC) 0.8 K/uL (0.7-4.9); Absolute Monocytes 0.9 K/uL (0.1-1.3); Absolute Neutrophil 17.3 K/uL (1.8-8.0); Basophils % 0.1 % (0-1.3); Eosinophils % 0.1 % (0-4.4); Hematocrit 41.3 % (36.0-45.0); Hemoglobin 13.6 g/dL (12.0-15.0); Lymphocytes % 4.4 % (15.3-44.8); MCH 31.3 pg (27.0-35.0); MCHC 32.8 g/dL (32.0-36.0); MCV 95.5 fL (80-100); Monocytes % 4.7 % (3.3-12.3); Platelets 166 thou/uL (152-406); RBC Red Blood Cell Count 4.33 M/uL (3.86-4.86); Red Cell Distribution Width 13.1 % (12.1-15.2)
[2024-09-12 05:19] LABS: Neutrophils % 90.7 % (41.7-73.7)
[2024-09-12] MEDS: FLU (Fluarix Triv) TS24-25(6MOS UP)/PF 45 MCG/0.5 ML Syringe IM ONE (07:15)
[2024-09-12 08:02] VITALS: O2SAT 95
[2024-09-12] MEDS: ESCITALOPRAM 20 MG TAB PO SCH (08:44)
[2024-09-12] MEDS: LOSARTAN POTASSIUM 50 MG TABLET PO SCH (08:45)
--- NOTE | 2024-09-12 10:04 | P.DS ---
Admission Date: 09/11/24 Discharge Date: 09/12/24 Disposition: ROUTINE DISCHARGE Discharge Condition: GOOD Reason for Admission: Appendicitis Consultations: Dr. Tolbert Procedures: laparoscopic appendectomy Brief History of Present Illness: 59-year-old female with a past medical history of hypertension, diabetes, depression, tobacco use, presents to the emergency with abdominal pain. She reports abdominal pain started 3 days ago, she reports associated nausea vomiting, she reports pain worse with p.o. intake, she thinks abdominal pain was related to eating pork from [employer]. No reported chest pain, shortness of breath, fever, plan to admit for appendicitis with surgery to consult. ER evaluation IMPRESSION: Mild hyponatremia 133, mild hypokalemia 3.2, blood glucose 235, leukocytosis, WBCs 19.40, CT of the abdomen pelvis mild thickening and stranding present at the base of the appendix could represent early or mild acute appendicitis in the appropriate clinical setting. No other acute findings identified. Hospital Course: Ms. Nobles is doing well postop, she is passing gas, ambulating, using her incentive spirometer. She is really ready to go home. Vital signs are stable and her pain is mostly relieved by [place]. Vital Signs/Physical Exam: Temp Pulse Resp BP Pulse Ox 98.6 F 84 16 113/67 95 09/12/24 08:00 09/12/24 08:00 09/12/24 08:00 09/12/24 08:00 09/12/24 08:00 General: Alert, In no apparent distress, Oriented x3 HEENT: Atraumatic, Normocephalic, PERRLA Neck: Supple Respiratory: Clear to auscultation bilaterally, Normal air movement Cardiovascular: No edema, Normal pulses, Regular rate/rhythm, Normal S1 S2 Capillary refill: <2 Seconds Gastrointestinal: Hypoactive, Other (trochar sides covered with clean and dry bandaids, + flatus) Musculoskeletal: No clubbing Integumentary: No rashes, No breakdown Neurological: Normal speech, Normal tone, Normal affect Lymphatics: No axilla or inguinal lymphadenopathy External genitalia: Deferred Rectal: Deferred Laboratory Data at Discharge: WBC 19.10 thou/uL (4.3-10.9) H 09/12/24 04:58 Hgb 13.6 g/dL (12.0-15.0) 09/12/24 04:58 Hct 41.3 % (36.0-45.0) 09/12/24 04:58 Plt Count 166 thou/uL (152-406) 09/12/24 04:58 Sodium 137 mEq/L (136-145) D 09/12/24 04:58 Potassium 4.0 mEq/L (3.5-5.1) D 09/12/24 04:58 BUN 10 mg/dL (7-18) 09/12/24 04:58 Creatinine 0.92 mg/dL (0.55-1.02) 09/12/24 04:58 Glucose 169 mg/dL (74-106) H 09/12/24 04:58 Magnesium 2.0 mg/dL (1.6-2.4) 09/12/24 04:58 Total Bilirubin 0.7 mg/dL (0.2-1.0) 09/11/24 14:08 AST 15 U/L (15-37) 09/11/24 14:08 ALT 25 U/L (13-56) 09/11/24 14:08 Alkaline Phosphatase 59 U/L (45-117) 09/11/24 14:08 Lipase 34 U/L (13-75) 09/11/24 14:08 Home Medications: Escitalopram Oxalate 10 mg PO DAILY 09/11/24 Losartan/Hydrochlorothiazide [Losartan-Hctz 100-12.5 mg Tab] 12.5 mg PO DAILY 09/11/24 Pioglitazone HCl 7 mg PO DAILY 09/11/24 Rosuvastatin Calcium 40 mg PO DAILY 09/11/24 Semaglutide [Rybelsus] 7 mg PO DAILY 09/11/24 buPROPion HCL [Bupropion Xl] 300 mg PO DAILY 09/11/24 glyBURIDE [Glyburide] 5 mg PO DAILY 09/11/24 Amox/Clavulanate [Augmentin 875-125 Tab] 1 each PO BID #20 tab 09/12/24 Hydrocodone 5/APAP 325 [[place] 5/325] 1 tab PO Q6H PRN #12 tab 09/12/24 New Medications: Amox/Clavulanate [Augmentin 875-125 Tab] 1 each PO BID #20 tab Hydrocodone 5/APAP 325 [[place] 5/325] 1 tab PO Q6H PRN #12 tab PRN Reason: Pain Physician Discharge Instructions: Ms. Nobles is doing well postop, she is passing gas, ambulating, using her incentive spirometer. She is really ready to go home. Vital signs are stable and her pain is mostly relieved by [place]. Status post laparoscopic appendectomy Take medications as directed May dc IV and dc patient Follow up PCP in 2 weeks Follow up with Dr. Tolbert as directed. Diet: Regular Activity: No lifting more than 10 lbs Followup: NONE,NONE [Primary Care Provider] -
[2024-09-12 12:45] VITALS: BP 121/62; TEMP 97.8
== END 2024-09-12 15:14 | disposition home or self-care (01) ==
LOC: ER 13:28 → ERHOLD 16:14 → 2ND 17:20
PROVIDERS: ADMIT Internal Medicine Sleep Medicine; ATTEND Hospitalist
PROC: 0DTJ4ZZ Resection of Appendix, Percutaneous Endoscopic Approach (ICD-10-PCS; principal; 2024-09-11 17:00)
DX: K35.80 Unspecified acute appendicitis (principal); I10 Essential (primary) hypertension; E11.9 Type 2 diabetes mellitus without complications; E87.6 Hypokalemia; F32.A Depression, unspecified; F17.210 Nicotine dependence, cigarettes, uncomplicated; R10.9 Unspecified abdominal pain; R11.2 Nausea with vomiting, unspecified
CPT/HCPCS: 96365; 96361; 85025 ×2; 81001; 80048; 36415; 83735; 81025; 82947 ×5; 88304; 83036; 83690; 80053; 74177; 94010; 96375; 99285; 44970; Q9967; J3480; J2704; J1100; J2710; J2543 ×3; J2250; J3010; J1171; J2405 ×2; J7030 ×3; G0378

== ENCOUNTER 2024-09-13 15:57 | Inpatient (IN) | payer BC ==
--- OUTSIDE RECORDS SUMMARY | 2024-09-13 16:01 | XMS REPORT | Continuity of Care Document ---
Author Name Unknown Address [address] [facility] [address] [place] [address] [facility] thconnect Address [address] [place] [address] Care Team Providers Care Supervisor Drying Name Role Phone JAIMESATISH GUILLERMO Attending Clinician Unavailable KENNEDY BARROW Attending Clinician Unavailable KINSEY HARRIS Attending Clinician Unava ilable RADHA CURIEL Attending Clinician Un available LAB47 Attending Clinician Unavailable MD TERRY Attending Clinician Unavailab le LAB90 Attending Clinician Unavailable BLAS MEJIA Attending Clinician Unavailable LADAN SORIA Attending Clinician Unavai lable LAB91 Attending Clinician Unavailable ARNOLD ERNANDEZ Attending Clinician Unavailable MANUEL NEWMAN Attending Clinician Unavailable [id number] Attending Clinician Unavailable Somphet_M_WAGDNU Attending Clinician Unavailable Aguilar_M Attending Clinician Unavailable DIDIER SHARP APRN Attending Clinician Unavaila ble Somphet_M_WAGDNU Admitting Clinician Unavailable Aguilar_M Admitting Clinician Unavailable Payers Payer Name Policy Type Policy Number Effective Date Expirati on Date Source BCBS 2 [id number] 2023 00:00:00 [employer] [facility] 3 [id number] 2022 00:00:00 [facility] - CIG [id number] 2022 00:00:[place] [id number] 2018 00:00:00 Problems Condition Name Condition Details Condition Category Status Onset Date Resolution Date Last Treatment Date Treating Clinician Comments Source Type 2 diabetes mellitus with hyperlipid emia (multi HCC) Type 2 diabetes mellitus with hyperlipid emia (multi HCC) Disease Active 07-08 00:00: 00 Noreen Juarez - Externa una Type 2 diabetes mellitus (multi HCC) Type 2 diabetes mellitus (multi HCC) Disease Active 2021-11 00:00: 00 Noreen Juarez - Externa l Psoriasis Psoriasis Disease Active 2021-11 00:00: 00 Noreen Juarez - Externa l Essential hypertensi on Essential hypertensi on Disease Active 2021-11 00:00: 00 Noreen Juarez - Externa l Smokes tobacco daily Smokes Tobacco Daily Problem Active 2021-11 00:00: 00 [facility] Depressive disorder Depressive Disorder Problem Active 2021-11 00:00: 00 [facility] Psoriasis Psoriasis Problem Active 2021-11 00:00: 00 [facility] Diabetes mellitus Diabetes Mellitus Problem Active 02-21 00:00: 00 [facility] Hypertensi ve disorder Hypertensi ve Disorder Problem Active 15 00:00: 00 [facility] Hyperlipid emia Hyperlipid emia Disease Active Noreen Juarez - Externa l History of diabetes mellitus History of diabetes [...] diabetes mellitus Problem Active [facility] Allergies, Adverse Reactions, Alerts Allergy Name Allergy Type Status Severity Reaction(s) Onset Date Inactive Date Treating Clinician Comments Source concrete dust [Other] Propensi ty to adverse reaction s Active 2021-11 00:00: 00 Noreen Juarez - Externa l Lisinopr il Propensi ty to adverse reaction s Active Cough 2021-11 00:00: 00 Noreen Juarez - Externa l Metformi n Drug Intolera nce Active Diarrhea 2021-11 00:00: 00 Noreen Juarez - Externa l Lisinopr il Allergy to substanc e Active [facility] Social History Social Habit Start Date Stop Date Quantity Comments Source Sexual orientation 2024-04-18 11:19:02 Heterosexual (finding) Noreen Juarez - External History of tobacco use 1978-11-09 00:00:00 Cigarette Smoker Noreen Juarez - External Gender identity Alma ey Seybold - External History SDOH Alcohol Frequency Noreen Ramsey bold - External History SDOH Alcohol Std Drinks [...] Date Stop Date Source Heavy Tobacco Smoker [facility] Tobacco smoking consumption unknown Noreen Orourkecarinejorge luis Valenzuela Smokes tobacco daily 2024-08-01 00:00:00 Noreen [...] MG oral Tablet 2023-11 00:00: 00 Yes [id number] 1{tbl} QD Take 1 tablet by mouth daily. Noreen heart Pioglitazon e HCl 15 MG oral Tablet 2023-11 00:00: 00 Yes [id number] 15mg QD Take 1 tablet (15 mg total) by mouth daily. Noreen heart Continuous Glucose Sensor (FreeStyle Elena 3 Plus Sensor) does not apply Misc 2023-11 00:00: 00 Yes [id number] 1{devic e} 1 device by does not apply route every 15 days. Noreen heart Semaglutide (Rybelsus) 3 MG oral Tablet 07-15 00:00: 00 08-18 00:00 :00 No [id number] 1{tbl} QD Take 1 tablet by mouth daily. Noreen heart Escitalopra m Oxalate 10 MG oral Tablet 06-06 00:00: 00 Yes [id number] 10mg QD Take 1 tablet (10 mg total) by mouth daily. Noreen heart Zinc 50 MG oral Capsule 06-03 07:58: 52 Yes Take by mouth Noreen heart Ascorbic Acid (Vitamin C) 500 MG oral Capsule 06-03 07:58: 30 Yes Take by mouth Noreen Marrufo l COLLAGEN OR 06-03 07:58: 30 Yes [...] MG oral Tablet 05-06 00:00: 00 Yes [id number] 1{tbl} QD Take 1 tablet by mouth daily. Noreen heart Losartan Potassium-H CTZ 100-12.5 MG oral Tablet 05-06 00:00: 00 Yes [id number] 1{tbl} QD Take 1 tablet by mouth daily. Noreen heart Bupropion HCL XL 300 MG OR TB24 05-06 00:00: 00 Yes [id number] 300mg QD Take 1 tablet (300 mg total) by mouth daily. Noreen heart glyBURIDE 5 MG oral Tablet 05-06 00:00: 00 Yes [id number] 10mg QD Take 2 tablets (10 mg total) by mouth daily (with breakfast) . Noreen heart Losartan Potassium-H CTZ 100-12.5 MG oral Tablet 05-06 00:00: 00 Yes [id number] 1{tbl} QD Take 1 tablet by mouth daily. Noreen heart Rosuvastati n Calcium 40 MG oral Tablet 05-06 00:00: 00 Yes [id number] 40mg QD Take 1 tablet (40 mg total) by mouth daily. Noreen heart Bupropion HCL XL 300 MG OR TB24 05-06 00:00: 00 Yes [id number] 300mg QD Take 1 tablet (300 mg total) by mouth daily. Noreen heart Triamcinjameson ne Acetonide 0.1 % apply externally Cream 05-06 00:00: 00 Yes [id number] Apply to rash on the legs, arms, and trunk twice daily as needed. Noreen heart glyBURIDE 5 MG oral Tablet 05-06 00:00: 00 08-18 00:00 :00 No [id number] 10mg QD Take 2 tablets (10 mg total) by mouth daily (with breakfast) . Noreen heart Continuous Glucose Sensor (FreeStyle Elena 2 Sensor) does not apply [facility] 05-06 00:00: 00 08-18 00:00 :00 No [id number] Check glucose continuous ly. Noreen heart Triamcinjameson ne Acetonide 0.1 % apply externally Cream 08 00:00: 00 05-06 00:00 :00 No [id number] Apply to rash on the legs, arms, [...] 11-27 00:00: 00 06-03 00:00 :00 No [id number] 5mg QD Take 1 tablet (5 mg total) by mouth daily (with breakfast) . Noreen heart Continuous Blood Gluc Sensor (FreeStyle Elena 2 Sensor) does not apply [facility] 11-27 00:00: 00 05-06 00:00 :00 No [id number] Check glucose continuous ly. Noreen heart Losartan Potassium-H CTZ 100-12.5 MG oral Tablet 11-27 00:00: 00 05-06 00:00 :00 No [id number] 1{tbl} QD Take 1 tablet by mouth daily. Noreen heart Bupropion HCL XL 300 MG OR TB24 11-27 00:00: 00 05-06 00:00 :00 No [id number] 300mg QD Take 1 tablet (300 mg total) by mouth daily. Noreen heart Rosuvastati n Calcium 40 MG oral Tablet 11-27 00:00: 00 05-06 00:00 :00 No [id number] 40mg QD Take 1 tablet (40 mg total) by mouth daily. Noreen heart Bupropion HCL XL 150 MG OR TB24 06-25 00:00: 00 11-27 00:00 :00 No 150mg Take 1 tablet (150 mg total) by mouth daily Noreen heart Jardiance 10 MG oral Tablet 06-15 00:00: 00 06-03 00:00 :00 No [id number] 10mg QD TAKE ONE (1) TABLET(S) BY [...] MG oral Tablet 03-26 00:00: 00 Yes [id number] 5mg Take 1 tablet (5 mg total) by mouth daily (with breakfast) Noreen heart Bupropion HCL XL 300 MG OR TB24 03-26 00:00: 00 Yes [id number] 300mg Take 1 tablet (300 mg total) by mouth daily Noreen heart Losartan Potassium-H CTZ 100-12.5 MG oral Tablet 03-26 00:00: 00 Yes [id number] 1{tbl} Take 1 tablet by mouth daily Noreen heart Rosuvastati n Calcium 20 MG oral Tablet 03-26 00:00: 00 Yes [id number] TAKE 1 TABLET EVERY DAY BY ORAL ROUTE. Noreen heart Empaglifloz in (Jardiance) 10 MG oral Tablet 03-26 00:00: 00 Yes [id number] 10mg Take 1 tablet (10 mg total) by mouth daily Noreen heart Imiquimod 5 % apply externally Cream 01-28 00:00: 00 Yes [id number] Apply a thin layer to area on [...] MG OR TB24 01-01 00:00: 00 Yes [id number] 300mg Take 1 tablet (300 mg total) by mouth daily Noreen heart Losartan Potassium-H CTZ 100-12.5 MG oral Tablet 01-01 00:00: 00 Yes [id number] 1{tbl} Take 1 tablet by mouth daily Noreen heart glyBURIDE 5 MG oral Tablet 01-01 00:00: 00 04-02 04:59 :00 No [id number] 5mg Take 1 tablet (5 mg total) by mouth daily (with breakfast) Noreen heart Semaglutide (Rybelsus) 7 MG oral Tablet 01-01 00:00: 00 03-26 00:00 :00 No [id number] 1{tbl} Take 1 tablet by mouth daily Noreen heart Rosuvastati n Calcium 20 MG oral Tablet 01-01 00:00: 00 03-26 00:00 :00 No [id number] TAKE 1 TABLET EVERY DAY BY ORAL ROUTE. Noreen heart Imiquimod 5 % apply externally Cream 2 00:00: 00 Yes [id number] Apply a thin layer to area on the left lower eyelid nightly for 16 weeks. Noreen heart glyBURIDE 5 MG oral Tablet 08 00:00: 00 01-01 00:00 :00 No [id number] 10mg Take 2 tablets (10 mg total) [...] by mouth Noreen heart Continuous Blood Gluc Research Nutritionist (FreeStyle Elena 14 Day Mesilla) does not apply Device 2021-11 00:00: 00 Yes [id number] Use as directed for continuous glucose monitoring Noreen heart Continuous Blood Gluc Sensor (FreeStyle Elena 14 Day Sensor) does not apply Misc 2021-11 00:00: 00 Yes [id number] Use as directed for continuous glucose monitoring with Elena sytem Noreen heart Semaglutide (Rybelsus) 7 MG oral Tablet 2021-11 00:00: 00 Yes [id number] 1{tbl} Take 1 tablet by mouth daily Noreen heart Glucose Blood (FreeStyle Precision Kirill Test) in vitro Strip 2021-11 00:00: 00 08-18 00:00 :00 No [id number] Use as directed for continuous glucose monitoring with Elena system Noreen heart Ostomy Supplies (Skin Tac Adhesive Barrier Wipe) does not apply [facility] 2021-11 00:00: 00 06-03 00:00 :00 No [id number] Use as directed for continuous glucose monitoring with Elena system Noreen heart glyBURIDE 5 MG oral Tablet 2021-11 00:00: 00 12-19 05:59 :00 No [id number] 10mg Take 2 tablets (10 mg total) by mouth daily (with breakfast) Noreen heart Triamcinolo ne Acetonide 0.1 % apply externally Cream 2021-11 00:00: 00 Yes [id number] Apply to rash on the legs, arms, and trunk twice daily as needed Noreen heart Hydrocortis one 2.5 % apply externally Cream 2021-11 00:00: 00 Yes [id number] Apply to rash on the armpits and [...] for 30 days. [facility] Bupropion HCL XL 300 MG OR TB24 07-27 00:00: 00 Yes 300mg Take 300 mg by mouth daily Noreen heart glyBURIDE 5 MG oral Tablet 07-26 00:00: 00 Yes 5mg Take 5 mg by mouth daily Noreen heart Atorvastati n Calcium 10 MG oral Tablet 07-24 00:00: 00 Yes 10mg Take 10 mg by mouth daily Noreen heart Losartan Potassium-H CTZ 100-12.5 MG oral Tablet 07-23 00:00: 00 Yes 1{tbl} Take 1 tablet by mouth daily Noreen Landaa una Wellbutrin XL Wellbutrin XL 2019-11 00:00: 00 No Wellbutrin XL [facility] glyBURIDE 5 MG Oral [...] Kit 2019-11 00:00: 00 Yes DIDIER SHARP JOIST SETTER USE DIRECTED. [facility] Accu-Chek Valentine Plus In Vitro Strip Accu-Chek Valentine Plus In Vitro Strip 2019-11 00:00: 00 Yes DIDIER SHARP JOIST SETTER test 3 times daily [facility] Accu-Chek FastClix Lancets Accu-Chek FastClix Lancets 2019-11 00:00: 00 Yes DIDIER SHARP JOIST SETTER CHECK BLOOD SUGAR DIRECTED (3 TIMES DAILY). [facility] BD Pen Needle Mini U/F 31G X 5 MM BD Pen Needle Mini U/F 31G X 5 MM 2019-11 00:00: 00 Yes DIDIER SHARP JOIST SETTER USE DIRECTED. [facility] Losartan Potassium-H CTZ 100-25 MG Oral Tablet Losartan Potassium-H CTZ 100-25 MG Oral Tablet 2019-11 00:00: 00 Yes DIDIER SHARP JOIST SETTER QD TAKE 1 TABLET ONCE DAILY. [facility] buPROPion HCl ER (XL) 150 MG Oral Tablet Extended Release 24 Hour buPROPion HCl ER (XL) 150 MG Oral Tablet Extended Release 24 Hour 2019-11 00:00: 00 Yes DIDIER SHARP JOIST SETTER QD TAKE 1 TABLET DAILY DIRECTED. [facility] predniSONE 20 MG Oral Tablet predniSONE 20 MG Oral Tablet 2019-11 00:00: 00 Yes DIDIER SHARP JOIST SETTER 1 Q0.5D TAKE 1 TABLET Twice daily As Directed with food [facility] atorvastati n 10 mg tablet [...] day by oral route for 90 days. [facility] bupropion HCl XL 300 [...] by oral route for 90 days. [facility] e glyburide 5 mg tablet Take 2 tablets twice a day by oral route for 90 days. glyburide 5 mg tablet Take 2 tablets twice a day by oral route for 90 days. No 2 BID glyburide 5 mg tablet Take 2 tablets twice a day by oral route for 90 days. [facility] e Immunizations Ordered Immunization Name Filled Immunization Name Date Status Comments Source zoster recombinant zoster recombinant 2021-04-26 16:37:17 Completed [facility] zoster, unspecified formulation zoster, unspecified formulation 2021-04-26 00:00:00 Completed [facility] zoster, unspecified formulation zoster, unspecified formulation 2021-04-26 00:00:00 Completed [facility] pneumococcal polysaccharide PPV23 pneumococcal polysaccharide PPV23 2021-02-21 12:03:00 Completed [facility] Tdap Tdap 2021-02-21 12:02:00 Completed [facility] Tdap Tdap 2021-02-21 12:02:00 Completed [facility] Tdap Tdap 2021-02-21 12:02:00 Completed [facility] zoster recombinant zoster recombinant 2021-02-21 12:01:00 Completed [facility] pneumococcal, unspecified formulation pneumococcal, unspecified formulation 2021-02-21 00:00:00 Completed [facility] zoster, unspecified formulation zoster, unspecified formulation 2021-02-21 00:00:00 Completed [facility] tetanus toxoid, unspecified formulation tetanus toxoid, unspecified formulation 2021-02-21 00:00:00 Completed [facility] pneumococcal, unspecified formulation pneumococcal, unspecified formulation 2021-02-21 00:00:00 Completed [facility] zoster, unspecified formulation zoster, unspecified formulation 2021-02-21 00:00:00 Completed [facility] tetanus toxoid, unspecified formulation tetanus toxoid, unspecified formulation 2021-02-21 00:00:00 Completed [facility] pneumococcal, unspecified formulation Unknown Completed Noreen Seybold - External Tdap- (Boostrix, Adacel) Unknown Completed Noreen Orourkeybold - External tetanus toxoid, unspecified formulation Unknown [...] Body temperature 2024-08-18 15:28:00 36.83 Marielle Noreen Seybold - External Respiratory rate 2024-08-18 15:28:00 18 /min Noreen Orourkeybold - External Body height 2024-08-18 15:28:00 160 cm Noreen Orourkeybold - External Body weight 2024-08-18 15:28:00 83.915 kg Noreen Seybold - External BMI 2024-08-18 15:28:00 32.77 kg/m2 [...] Body temperature 2022-09-19 14:10:00 36.94 Marielle Noreen Seybold - External Respiratory rate 2022-09-19 14:10:00 18 /min Noreen Seybold - External Body height 2022-09-19 14:10:00 160 cm Noreen Orourkeybold - External Body weight 2022-09-19 14:10:00 90.538 kg Noreen Seybold - External BMI 2022-09-19 14:10:00 35.36 kg/m2 Noreen Seybold - External Oxygen saturation in Arterial blood by Pulse oximetry 2022-09-19 14:10:00 98 /min Noreen Orourkeybold - External BP Diastolic 2022-08-29 00:00:00 85 mm[Hg] [facility] Height 2022-08-29 00:00:00 63 [in_i] [facility] BMI (Body Mass Index) 2022-08-29 00:00:00 35.5 kg/m2 [facility] BP Systolic 2022-08-29 00:00:00 134 mm[Hg] [facility] Body Weight 2022-08-29 00:00:00 200.6 [lb_av] [facility] BP Diastolic 2021-02-21 00:00:00 84 mm[Hg] [facility] Height 2021-02-21 00:00:00 63 [in_i] [facility] BMI (Body Mass Index) 2021-02-21 00:00:00 35.6 kg/m2 [facility] BP Systolic 2021-02-21 00:00:00 131 mm[Hg] [facility] Body Weight 2021-02-21 00:00:00 201.2 [lb_av] [facility] Systolic blood pressure 2020-10-22 17:51:00 142 mm[Hg] [...] temperature 2020-10-22 17:26:00 96.9 [degF] Method: Temporal [facility] Heart Rate 2020-10-22 17:26:00 95 /min Location: L Brachial Artery; Quality: Normal [facility] Respiratory rate 2020-10-22 17:26:00 18 /min Quality: Normal [facility] O2 SAT 2020-10-22 17:26:00 97 % Source: [facility] Procedures Procedure Date / Time Performed Performing Clinicia n Source MAMMO, 3D rendering, w/o image post-processing 2022-08-29 00:00:00 [facility] MAMMO, screening, digital, bilateral 2022-08-29 00:00:00 [facility] LDCT, chest, for lung cancer screening 2022-08-29 00:00:00 [facility] [QL] HEMOGLOBIN A1c 2020-10-22 00:00:00 [facility] [QL] CBC (INCLUDES DIFF/PLT) 2020-10-22 00:00:00 [facility] [QL] LIPID PANEL 2020-10-22 00:00:00 [facility] [QL] TSH, 3RD GENERATION W/REFLEX TO FT4 2020-10-22 00:00:00 [facility] [QL] CMP W/EGFR 2020-10-22 00:00:00 [facility] [Q] HIV AB, HIV 1/2, EIA, WITH REFLEXES 2020-10-22 00:00:00 [facility] [QL] HEPATITIS PANEL 2020-10-22 00:00:00 [facility] Plan of Care Planned Activity Planned Date Details Comments Source Diagnostic Test Pending 2022-08-29 00:00:00 CBC w/ auto diff [code = CBC w/ auto diff] [facility] Diagnostic Test Pending 2022-08-29 00:00:00 CMP, serum or plasma [code = CMP, serum or plasma] [facility] Diagnostic Test Pending 2022-08-29 00:00:00 lipid panel, serum [code = lipid panel, serum] [facility] Diagnostic Test Pending 2022-08-29 00:00:00 TSH, serum or plasma [code = TSH, serum or plasma] [facility] Diagnostic Test Pending 2022-08-29 00:00:00 urinalysis, dipstick [code = urinalysis, dipstick] [facility] Diagnostic Test Pending 2022-08-29 00:00:00 microalbumin/creatini ne, mass ratio, urine [code = microalbumin/creatini ne, mass ratio, urine] [facility] Diagnostic Test Pending 2022-08-29 00:00:00 HbA1c (hemoglobin A1c), blood [code = HbA1c (hemoglobin A1c), blood] [facility] Diagnostic Test Pending 2022-08-29 00:00:00 noninvasive colorectal cancer DNA + occult blood screening, QL, stool [code = noninvasive colorectal cancer DNA + occult blood screening, QL, stool] [facility] Encounters Start Date/Time End Date/Time Encounter Type Admission Type Attending Clinicians Care Facility Care Department Encounter ID Source 2024-11-24 10:30:00 2024-11-24 10:30:00 Outpatient SATISH PICKENS [id number] Noreen Juarez 2024-09-02 10:00:00 2024-09-02 10:00:00 Outpatient KENNEDY BARROW [id number] Noreen Juarez 2024-09-01 00:00:00 2024-09-01 00:00:00 Outpatient KIMBERLY KINSEY NOREEN MENDOZA [id number] Noreen Seybjorge luis 2024-08-22 10:45:00 2024-08-22 10:45:00 Outpatient RADHA CURIEL NOREEN MENDOZA [id number] Noreen Seybold 2024-08-18 11:15:00 2024-08-18 11:15:00 Outpatient ANGÉLICA NOREEN MENDOZA [id number] Noreen Seybold 2024-08-18 10:30:00 2024-08-18 10:30:00 Outpatient SATISH PICKENS NOREEN MENDOZA [id number] Noreen Seybold 2024-08-01 00:00:00 2024-08-01 00:00:00 Outpatient KINSEY HARRIS [id number] Noreen Seybold 2024-08-01 00:00:00 2024-08-01 00:00:00 Outpatient MD NOREEN PAULINO [id number] Noreen Seybold 2024-07-28 15:30:00 2024-07-28 15:30:00 Outpatient NOREEN MENDOZA [id number] Noreen Seybold 2024-07-27 08:00:00 2024-07-27 08:00:00 Outpatient NOREEN MENDOZA [id number] Noreen Seybold 2024-07-15 00:00:00 2024-07-15 00:00:00 Outpatient KENNEDY BARROW [id number] Noreen Seybold 2024-07-14 00:00:00 2024-07-14 00:00:00 Outpatient KENNEDY BARROW [id number] Noreen Seybold 2024-07-08 00:00:00 2024-07-08 00:00:00 Outpatient KINSEY HARRIS [id number] Noreen Seybold 2024-07-08 00:00:00 2024-07-08 00:00:00 Outpatient KENNEDY BARROW [id number] Noreen Seybold 2024-07-07 16:00:00 2024-07-07 16:00:00 Outpatient NOREEN MENDOZA [id number] Noreen Seybold 2024-06-06 00:00:00 2024-06-06 00:00:00 Outpatient KINSEY HARRIS [facility]ENDOZA [id number] [facility]24-[facility]-03 08:50:00 2024-06-03 08:50:00 Outpatient CIRILO [facility] [id number] [facility] 2024-06-03 08:00:00 2024-06-03 08:00:00 Outpatient KINSEY HARRIS NOREEN MENDOZA [id number] Noreen [facility] 2024-05-06 09:30:00 2024-05-06 09:30:00 Outpatient KINSEY HARRIS [facility] [id number] [facility]24-[facility]-15 00:00:00 2024-02-15 00:00:00 Outpatient ROBERTO BLAS NOREEN MENDOZA [id number] Noreen [facility] 2023-11-27 16:15:00 2023-11-27 16:15:00 Outpatient KINSEY HARRIS NOREEN MENDOZA [id number] [facility] 2023-11-26 16:00:00 2023-11-26 16:00:00 Outpatient KINSEY HARRIS [facility] [id number] [facility] 2023-09-24 08:00:00 2023-09-24 08:00:00 Outpatient ROBERTOBLAS [facility] [id number] [facility] 2023-06-24 00:00:00 2023-06-24 00:00:00 Outpatient LADAN SORIA [id number] Noreen [facility] 2023-06-13 00:00:00 2023-06-13 00:00:00 Outpatient [facility]AN SORIA [id number] [facility] 2023-04-09 00:00:00 2023-04-09 00:00:00 Outpatient MD [facility]OREEN PAULINO [id number] [facility] 2023-04-09 00:00:00 2023-04-09 00:00:00 Outpatient MD NOREEN PAULINO [id number] Noreen [facility] 2023-03-26 09:15:00 2023-03-26 09:15:00 Outpatient LAB91 NOREEN MENDOZA [id number] Noreen Seybold 2023-03-26 08:30:00 2023-03-26 08:30:00 Outpatient LADAN SORIA NOREEN MENDOZA [id number] Noreen Seybold 2023-03-26 07:45:00 2023-03-26 07:45:00 Outpatient ROBETRO, BLAS MENDOZA [id number] Noreen Seybold 2023-01-27 00:00:00 2023-01-27 00:00:00 Outpatient ROBERTO, BLAS MENDOZA [id number] Noreen Seybold 2023-01-19 08:00:00 2023-01-19 08:00:00 Outpatient SAMDANUTA, LADAN NOREEN MENDOZA [id number] Noreen Seybold 2023-01-01 14:15:00 2023-01-01 14:15:00 Outpatient LAB91 NOREEN MENDOZA [id number] Noreen Seybold 2023-01-01 13:45:00 2023-01-01 13:45:00 Outpatient LADAN SORIA NOREEN MENDOZA [id number] Noreen Seybold 2022-12-29 00:00:00 2022-12-29 00:00:00 Outpatient ROBERTO, BLAS MENDOZA [id number] Noreen Seybold 2022-12-17 00:00:00 2022-12-17 00:00:00 Outpatient ESTELLA, LADAN NOREEN MENDOZA [id number] Noreen Seybold 2022-12-09 00:00:00 2022-12-09 00:00:00 Outpatient ROBERTO, BLAS MENDOZA [id number] Noreen Seybold 2022-11-27 00:00:00 2022-11-27 00:00:00 Outpatient AWAIS, ARNOLD MENDOZA [id number] Noreen Seybold 2022-11-20 12:30:00 2022-11-20 12:30:00 Outpatient AWAIS, ARNOLD MENDOZA [id number] Noreen Seybold 2022-11-18 07:30:00 2022-11-18 07:30:00 Outpatient ROBERTO, BLAS MENDOZA [id number] Noreen Seybjorge luis 2022-11-06 00:00:00 2022-11-06 00:00:00 Outpatient LADAN SORIA NOREEN MENDOZA [id number] [facility] 2022-10-31 08:30:00 2022-10-31 08:30:00 Outpatient MANUEL NEWMAN NOREEN [facility]ENDOZA [id number] [facility] 2022-10-17 08:00:00 2022-10-17 08:00:00 Outpatient LADAN SORIA [facility] [id number] [facility] 2022-10-10 00:00:00 2022-10-10 00:00:00 Outpatient LADAN SORIA [facility] [id number] [facility]22-[facility]-08 00:00:00 2022-10-08 00:00:00 Outpatient LADAN SORIA NOREEN MENDOZA [id number] [facility] 2022-10-08 00:00:00 2022-10-08 00:00:00 Outpatient ARNOLD ERNANDEZ N[facility]EN [facility]ENDOZA [id number] [facility] 2022-09-19 08:45:00 2022-09-19 08:45:00 Outpatient LAB91 N[facility]EN MENDOZA [id number] [facility] 2022-09-19 08:00:00 2022-09-19 08:00:00 Outpatient LADAN SORIA [facility]END[facility]ZA [id number] [facility] 2022-09-17 00:00:00 2022-09-17 00:00:00 Outpatient ROBERTO BLAS MENDOZA [id number] Noreen [facility] 11:00:00 2022-09-11 11:00:00 Outpatient MLC23-LZR NOREEN MENDOZA [id number] Noreen Seybold 2022-09-11 07:45:00 2022-09-11 07:45:00 Outpatient ROBERTO, BLAS MENDOZA [id number] Noreen Seybold 2022-08-29 00:00:00 2022-08-29 00:00:00 Outpatient Somphet_M_W AGDNU VFP VFP [id number] [facility] 2022-08-29 00:00:00 2022-08-29 00:00:00 ROXI Hi: [address], [place] [address] , Ph. VFP [place] - [facility] [place] [facility] ([place]) [id number] [facility] 2022-08-27 00:00:00 2022-08-27 00:00:00 Outpatient Aguilar_M VFP VFP [id number] [facility] 2022-08-26 00:00:00 2022-08-26 00:00:00 Outpatient Aguilar_M VFP VFP [id number] [facility] 2021-09-09 00:00:00 2021-09-09 00:00:00 Outpatient Aguilar_M VFP VFP [id number] [facility] 2021-07-12 12:20:00 2021-07-12 12:20:00 Outpatient Somphet_M_W AG VFP VFP [id number] [facility] 2021-07-12 00:00:00 2021-07-12 00:00:00 Outpatient Somphet_M_W AGDNU VFP VFP [id number] [facility] 2021-04-30 03:29:00 2021-04-30 03:29:00 Outpatient Aguilar_M VFP VFP [id number] [facility] 2021-04-26 05:31:00 2021-04-26 05:31:00 Outpatient Somphet_M_W AG VFP VFP [id number] [facility] 2021-04-26 00:00:00 2021-04-26 00:00:00 Criselda Fink MD: [id number], [place] [address] , Ph. VFP [place] - [facility] - [facility] ([place]) [id number] [facility] 2021-04-22 01:38:00 2021-04-22 01:38:00 Outpatient Somphet_M_W AG VFP VFP [id number] [facility] 2021-04-22 01:38:00 2021-04-22 01:38:00 Outpatient Aguilar_M VFP VFP [id number] [facility] 2021-03-18 11:03:00 2021-03-18 11:03:00 Outpatient Aguilar_M VFP VFP [id number] [facility] 2021-03-09 01:02:00 2021-03-09 01:02:00 Outpatient Somphet_M_W AG VFP VFP [id number] [facility] 2021-02-26 06:50:00 2021-02-26 06:50:00 Outpatient Aguilar_M VFP VFP [id number] [facility] 2021-02-21 10:52:00 2021-02-21 10:52:00 Outpatient Somphet_M_W AG VFP VFP [id number] [facility] 2021-02-21 00:00:00 2021-02-21 00:00:00 Criselda Fink MD: [address], [place] [address] , Ph. VFP [place] - [facility] - VM_[facility] (MON[facility]) [id number] [facility] 2021-02-15 11:41:00 2021-02-15 11:41:00 Outpatient Somphet_M_W AG VFP VFP [id number] [facility] 2021-02-15 11:41:00 2021-02-15 11:41:00 Outpatient Aguilar_M VFP VFP [id number] [facility] 2021-02-14 11:53:00 2021-02-14 11:53:00 Outpatient Somphet_M_W AG VFP VFP [id number] [facility] 2020-10-22 17:00:00 2020-10-22 17:00:00 DIDIER Lopze APRN FUENTES, ROSA, [facility]N [facility] [id number] [facility] Results Test Description Test Time Test Comments Results Result Co mments Source [facility][QL] LIPID [id number] 00:00:00* Test Item Value Reference Range Interpretation [...] especially if > or = 1000 mg/dL). Werner et al. J. of Clin. Lipidol. 2015;9:129-169. LDL-CHOLESTEROL (test code = 17842-8) See Comment LDL cholesterol not calculated. Triglyceride [...] LDL-C. Clifford CHUN et al. LIZZY. 2013;310(19): 2317-6139 (http://education.LynxFit for Google [employer].e[employer]ashion [employer]/faq/ECN377) CHOL/HDLC RATIO (test code = CHOL/HDLC RATIO) [...] <70 mg/dL) is considered a therapeutic option. [facility][QL] HEPATITIS [id number] 00:00:00* Test Item Value Reference Range Interpretation Comme nts HEPATITIS A AB, TOTAL; Abnormal (test code = 70540-6) REACTIVE NON-REACTIVE A For additional information, please refer to http://education.[employer] tdiagnThe Daily Voices.e[employer]ashion [employer]/faq/ SLV905 (This link is being provided for informational/educati onal purposes only.) HEPATITIS B SURFACE ANTIBODY QL; Normal (test code = 55951-2) NON-REACTIVE NON-REACTIVE N HEPATITIS B SURFACE ANTIGEN; Normal (test code = 5195-3) NON-REACTIVE NON-REACTIVE N HEPATITIS B CORE AB TOTAL; Normal (test code = 48445-0) NON-REACTIVE NON-REACTIVE N HEPATITIS C ANTIBODY; Normal (test code = 36697-8) NON-REACTIVE NON-REACTIVE N SIGNAL TO CUT-OFF (test code = SIGNAL TO CUT-OFF) 0.01 <1.00 N HCV antibody was non-reactive. There is no laboratory evidence of HCV infection. In most cases, no further action is required. However,if recent HCV exposure is suspected, a test for HCV RNA(test code 58290) is suggested. For additional information please refer tohttp://education.[employer]Compare.[employer]/fa q/XFO74o5(This link is being provided for informational/educati onal purposes only.) [facility][Q] HIV AB, HIV 1/2, EIA, WITH [id number] 00:00:00* Test Item Value Reference Range Interpretation Comme nts HIV AG/AB, 4TH GEN; Normal (test code = 70637-1) NON-REACTIVE NON-REACTIVE N HIV-1 antigen an d [...] this purpose. For additional information please refer tohttp://Jianshu.VISUALPLANT/faq/RQS248(Thi s link is being provided for informational/educational purposes only.) The performance of this assay has not been clinicallyvalidated in patients less than 2 years old. [facility][QL] CMP [id number] 00:00:00* Test Item Value Reference Range Interpretation [...] is approximately 13% higher for peopleidentified as -Lithuanian. eGFR NON-AFR. SENEGALESE (test code = eGFR NON-AFR. SENEGALESE) 92 {ML/MIN/1.7} > OR = 60 N [...] N BILIRUBIN, TOTAL; Normal (test code = 20759-7) 0.3 mg/dl 0.2-1.2 N ALKALINE PHOSPHATASE (test code = ALKALINE PHOSPHATASE) 88 u/l 37-153 N AST; Normal (test code = 1916-6) 14 u/l 10-35 N ALT; Normal (test code = 1742-6) 17 u/l 6-29 N [facility][QL] CBC (INCLUDES DIFF/PLT)2020-10-22 00:00:00* Test Item Value Reference Range Interpretation Comme nts WHITE BLOOD CELL COUNT (test code = WHITE BLOOD CELL COUNT) 11.5 {Thousand/u} 3.8-10.8 RED BLOOD CELL COUNT (test code = RED BLOOD CELL COUNT) 5.31 {Million/uL} 3.80-5.10 HEMOGLOBIN; Above High Threshold (test code = 16019-3) 16.4 g/dl 11.7-15.5 HEMATOCRIT; Above High Threshold (test code = 4544-3) 48.2 % 35.0-45.0 MCV; Normal (test code = 787-2) 90.8 fL 80.0-100.0 N MCHC; Normal (test code = 61947-9) 34.0 g/dl 32.0-36.0 N RDW; Normal (test code = 788-0) 12.6 % 11.0-15.0 N PLATELET COUNT; Normal (test code = 777-3) 253 {Thousand/u} 140-400 N MPV; Above High Threshold (test code = 91755-8) 12.8 fL 7.5-12.5 ABSOLUTE NEUTROPHILS (test code = ABSOLUTE NEUTROPHILS) 5865 {cells/uL} 2122-1145 N ABSOLUTE LYMPHOCYTES (test code = ABSOLUTE [...] % N MONOCYTES; Normal (test code = 29366-9) 6.2 % N EOSINOPHILS; Normal (test code = 29674-5) 2.0 % N BASOPHILS; Normal (test code = 30357-2) 0.5 % N [facility][QL] TSH, 3RD GENERATION W/REFLEX TO [id number] 00:00:00* Test Item Value Reference Range Interpretation Comme nts TSH, 3RD GENERATION W/REFLEX TO FT4 (test code = TSH, 3RD GENERATION W/REFLEX TO FT4) 3.35 {MIU/L} N Reference Range > or = 20 Years 0.40-4.50 Ranges First trimester 0.26-2.66 Second trimester 0.55-2.73 Third trimester 0.43-2.91 [facility][QL] HEMOGLOBIN [id number] 00:00:00* Test Item Value Reference Range Interpretation Comme nts HEMOGLOBIN A1c; Above High Threshold (test code = 4548-4) 12.9 {% of total} <5.7 For someone without known diabetes, a hemoglobin V8vazgfl of 6.5% or greater indicates that they [...] A1c for diagnosis of diabetes for children. [facility] Notes Date/Time Note Provider Source 2024-08-18 10:29:55 Chief Complaint Patient presents with Consultation Diabetes Fasting Blood sugar 85 Danika Arenas CMA II [facility] 2024-06-03 07:59:11 Chief Complaint Patient presents with Physical Fasting for labs Lily Barrett LVN [facility] 2024-05-06 09:04:42 Chief Complaint Patient presents with REFILLS-NURSE/MD Refill all medications Imani Jones MA II T [facility]
[2024-09-13] MEDS ORDERED: ONDANSETRON 4 MG/2 ML VIAL ONE (16:22)
[2024-09-13] MEDS ORDERED: NA CHLORIDE 0.9% 1,000 ML ONE (16:23)
[2024-09-13] MEDS ORDERED: MORPHINE 4 MG/ML SYR ONE (16:23)
[2024-09-13 16:28] LABS: Absolute Eosinophils 0.1 K/uL (0-0.5); Absolute Lymphocytes (CBC) 0.7 K/uL (0.7-4.9); Absolute Monocytes 1.1 K/uL (0.1-1.3); Absolute Neutrophil 8.3 K/uL (1.8-8.0); Basophils % 0.3 % (0-1.3); Hemoglobin 15.2 g/dL (12.0-15.0); Lymphocytes % 6.7 % (15.3-44.8); MCH 31.7 pg (27.0-35.0); MCHC 33.8 g/dL (32.0-36.0); MCV 93.7 fL (80-100); MPV 9.9 fL (7.6-11.3); Platelets 177 thou/uL (152-406); RBC Red Blood Cell Count 4.81 M/uL (3.86-4.86); Red Cell Distribution Width 12.9 % (12.1-15.2)
--- NOTE | 2024-09-13 17:05 | RAD REPORT ---
EXAMINATION: CT ABDOMEN AND PELVIS WITH CONTRAST CLINICAL INDICATION: s/p appendectomy;Abd pain TECHNIQUE: CT abdomen and pelvis was performed, after the administration of IV contrast, as per [facility]. Axial, sagittal and coronal reconstructions were obtained. One or more of the following dose reduction techniques were used: Automated exposure control, adjustment of the mA and k V according to patient size, and iterative reconstruction. Unless otherwise specified, incidental findings do not require dedicated imaging follow-up. COMPARISON: 09/11/2024 FINDINGS: LOWER CHEST: The visualized lung bases are clear. LIVER: Normal in size and contour. No focal lesion. Grossly unremarkable gallbladder. SPLEEN: Normal size. No focal lesion. PANCREAS: No mass, ductal dilation, or daniella-pancreatic fluid. ADRENALS: Normal; no mass. KIDNEYS: Normal size and contour. No hydronephrosis. GASTROINTESTINAL TRACT: No evidence of free air, significant intra-abdominal free fluid, bowel obstru ction or abscess. APPENDIX: Postsurgical changes are present in the right lower quadrant of recent appendectomy. There few mildly prominent adjacent lymph nodes and slight fat stranding in the region. Cecum shows distention and is fluid-filled. This may indicate a localized ileus. LYMPH NODES: No lymphadenopathy. MUSCULOSKELETAL: No acute or suspicious osseous abnormality. ADDITIONAL FINDINGS: None. IMPRESSION: Mild localized ileus in the region of the cecum with recent postsurgical changes in the right lower q uadrant. No abscess or other complicating factor observed.
[2024-09-13 17:15] LABS: Albumin 2.9 g/dL (3.4-5.0); Albumin/Globulin Ratio 0.8 (1.1-1.8); Anion Gap 15.5 mEq/L (5.0-15.0); Bilirubin Total 0.6 mg/dL (0.2-1.0); Globulin 3.7 g/dL (2.3-3.5); Potassium 3.5 mEq/L (3.5-5.1); Protein, Total 6.6 g/dL (6.4-8.2); Troponin High Sensitivity 3.5 pg/mL (<58.9)
[2024-09-13] MEDS ORDERED: ACETAMINOPHEN 500 MG TAB PO PRN (18:04)
[2024-09-13] MEDS ORDERED: MORPHINE 2 MG/ML SYR IV PRN ×2 (18:04→20:30)
--- NOTE | 2024-09-13 18:04 | P.HP ---
Certification for Inpatient Patient admitted to: Observation With expected LOS: <2 Midnights Patient will require the following post-hospital care: None Practitioner: I am a practitioner with admitting privileges, knowledge of patient current condition, hospital course, and medical plan of care. Services: Services provided to patient in accordance with Admission requirements found in Title 42 Section 412.3 of the Code of Federal Regulations Patient History Date of Service: 09/13/24 Reason for admission: Postoperative ileus status post appendectomy History of Present Illness: Patient is a 59-year-old female who came to the hospital with abdominal pain and intractable nausea vomiting. Patient status post appendectomy 48 hours ago. Patient was seen by Dr. Tolbert general surgeon. Patient did well postoperatively and was discharged home yesterday. She had been doing well until this morning when she had abdominal pain and nausea vomiting. She came to the ER and her workup revealed that she had a postoperative ileus that was localized around the area of the cecum. Currently, she is feeling better after the pain medication. Will hydrate her with IV fluids and she will be admitted for observation. Allergies lisinopril Adverse Reaction (Verified 09/11/24 16:35) metformin Adverse Reaction (Verified 09/11/24 16:35) [place] dust Adverse Reaction (Uncoded 09/11/24 16:35) Home Medications: Escitalopram Oxalate 10 mg PO DAILY 09/11/24 Losartan/Hydrochlorothiazide [Losartan-Hctz 100-12.5 mg Tab] 12.5 mg PO DAILY 09/11/24 Pioglitazone HCl 7 mg PO DAILY 09/11/24 Rosuvastatin Calcium 40 mg PO DAILY 09/11/24 Semaglutide [Rybelsus] 7 mg PO DAILY 09/11/24 buPROPion HCL [Bupropion Xl] 300 mg PO DAILY 09/11/24 glyBURIDE [Glyburide] 5 mg PO DAILY 09/11/24 Amox/Clavulanate [Augmentin 875-125 Tab] 1 each PO BID #10 tab 09/12/24 Hydrocodone 5/APAP 325 [Askov 5/325] 1 tab PO Q12H PRN #3 tab 09/12/24 Hydrocodone 5/APAP 325 [Askov 5/325] 1 tab PO Q12H PRN #3 tab 09/12/24 Hydrocodone 5/APAP 325 [Askov 5/325] 1 tab PO Q6H PRN #3 tab 09/12/24 - Past Medical/Surgical History -: Diabetes -: Hypertension -: Hyperlipidemia -: Depression -: No reported surgery - Social History Alcohol use: No CD- Drugs: No Caffeine use: Yes Review of Systems 10-point ROS is otherwise unremarkable Physical Examination - Physical Exam General: Alert, In no apparent distress HEENT: Atraumatic, PERRLA, Mucous membr. moist/pink, EOMI, Sclerae nonicteric Neck: Supple, 2+ carotid pulse no bruit, No LAD, Without JVD or thyroid abnormality Respiratory: Clear to auscultation bilaterally, Normal air movement Cardiovascular: Regular rate/rhythm, Normal S1 S2 Gastrointestinal: Normal bowel sounds, No tenderness Musculoskeletal: No tenderness Integumentary: No rashes Neurological: Normal gait, Normal speech, Normal strength at 5/5 x4 extr, Normal tone, Normal affect Lymphatics: No axilla or inguinal lymphadenopathy - Studies Laboratory Data (last 24 hrs) 09/13/24 09/13/24 16:20 16:20 WBC 10.20 Hgb 15.2 H Hct 45.0 Plt Count 177 Sodium 136 Potassium 3.5 BUN 13 Creatinine 0.85 Glucose 200 H Total Bilirubin 0.6 AST 63 H ALT 81 H Alkaline Phosphatase 79 Lipase 31 Assessment & Plan - Advance Directives Does patient have a Living Will: No Does patient have a Durable POA for Healthcare: No
--- NOTE | 2024-09-13 18:07 | ER ---
Nurse's Notes [facility] Name: Shahana Nobles Age: 59 yrs Sex: Female : 1965 Arrival Date: 09/13/2024 Time: 15:57 Bed 16 Private MD: Diagnosis: Postoperative ileus, vomiting Presentation: 09/13 16:05 Chief complaint: EMS states: Chest pain, N/V, diarrhea, and abdominal pain that started rs5 this morning. 16:05 Coronavirus screen: At this time, the client does not indicate any symptoms associated rs5 with coronavirus-19. Ebola Screen: No symptoms or risks identified at this time. Initial Sepsis Screen: Does the patient meet any 2 criteria? No. Patient's initial sepsis screen is negative. Does the patient have a suspected source of infection? No. Patient's initial sepsis screen is negative. Risk Assessment: Do you want to hurt yourself or someone else? Patient reports no desire to harm self or others. Onset of symptoms was September 13, 2024. 16:05 Method Of Arrival: Wheelchair rs5 16:09 Acuity: FELICIA 2 bp Triage Assessment: 16:05 General: Appears in no apparent distress. Behavior is cooperative, appropriate for age, bp anxious. Pain: Complains of pain in chest and abdomen. EENT: No deficits noted. Neuro: No deficits noted. Cardiovascular: Reports chest pain. Respiratory: No deficits noted. GI: Reports nausea. : No signs and/or symptoms were reported regarding the genitourinary system. Derm: No deficits noted. Musculoskeletal: No deficits noted. Historical: - Allergies: 16:19 Lisinopril; rs5 16:19 concrete dust; rs5 16:19 Metformin HCl; rs5 - PMHx: 16:05 Hypertensive disorder; Diabetes mellitus; rs5 - PSHx: 16:19 Appendectomy; rs5 - Immunization history:: Adult Immunizations Adult Immunizations up to date. - Infectious Disease History:: Denies. - Social history:: Smoking status: Patient denies any tobacco usage or history of. Screenin:34 [facility] ED Fall Risk Assessment (Adult) History of falling in the last 3 months, bp including since admission No falls in past 3 months (0 pts) Confusion or Disorientation No (0 pts) Intoxicated or Sedated No (0 pts) Impaired Gait No (0 pts) Mobility Assist Device Used No (0 pt) Altered Elimination No (0 pt) Score/Fall Risk Level 0 - 2 = Low Risk. Abuse screen: Denies threats or abuse. Denies injuries from another. Nutritional screening: No deficits noted. Tuberculosis screening: No symptoms or risk factors identified. Assessment: 16:05 General: Appears uncomfortable, Behavior is cooperative, appropriate for age, anxious. bp Pain: Pain does not radiate. Pain began 1 day ago. 18:21 Reassessment: REPORT FAXED FOR RM 215. bp 19:18 Reassessment: Patient appears in no apparent distress at this time. Patient and/or bp family updated on plan of care and expected duration. Pain level reassessed. Patient is alert, oriented x 3, equal unlabored respirations, skin warm/dry/pink. Vital Signs: 16:05 BP 147 / 81; Pulse 81; Resp 17; Temp 98(O); Pulse Ox 98% on R/A; rs5 18:21 BP 108 / 92; Pulse 89; Resp 12; Temp 98.1; Pulse Ox 98% ; bp ED Course: 15:58 Patient arrived in ED. im 16:02 Navi Yo MD is Attending Physician. sp3 16:08 Bill Lanier, TICO is Primary Nurse. bp 16:09 Triage completed. bp 16:34 Patient has correct armband on for positive identification. Client placed on continuous bp cardiac and pulse oximetry monitoring. NIBP monitoring applied. pvc monitor on. Pulse ox on. NIBP on. 16:34 Patient maintains SpO2 saturation greater than 95% on room air. bp 16:57 CT Abd/Pelvis - IV Contrast Only In Process Unspecified. EDMS 18:06 Trina Bravo MD is Hospitalizing Provider. sp3 19:18 No provider procedures requiring assistance completed. Patient admitted, IV remains in bp place. Administered Medications: 16:25 Drug: NS 0.9% IV 1000 ml IV at 1 bolus Per protocol; to be given as a bolus over 60 rs5 minutes Route: IV; Rate: 1 bolus; Site: left antecubital; 18:21 Follow up: IV Status: Completed infusion bp 16:30 Drug: Ondansetron IVP 4 mg IVP once; over 2 minutes Route: IVP; Site: left antecubital; rs5 18:20 Follow up: Response: No adverse reaction bp 16:30 Drug: morphine IVP or IV 4 mg IVP once over 4 mins Route: IVP; Infused Over: 4 mins; rs5 Site: left antecubital; 18:20 Follow up: Response: No adverse reaction bp Outcome: 18:06 Decision to Hospitalize by Provider. sp3 19:17 Admitted to Med/surg accompanied by nurse, via wheelchair, room 215, with chart, bp 19:17 Condition: stable 19:17 Discharge instructions given to patient, Instructed on the need for admit, Demonstrated understanding of instructions, 19:18 Patient left the ED. bp Signatures: Dispatcher [employer] EDBill Butterfield RN RN bp Navi Yo MD MD sp3 Layo Guy RN RN rs5 Lauryn Rodriguez
--- NOTE | 2024-09-13 18:07 | EDPHYS ---
Physician Documentation [facility] Name: Shahana Nobles Age: 59 yrs Sex: Female : 1965 Arrival Date: 09/13/2024 Time: 15:57 Bed 16 Private MD: ED Physician Navi Yo HPI: 09/13 16:19 This 59 yrs old Female presents to ER via Wheelchair with complaints of Chest Pain, sp3 Abdominal Pain. 16:19 59-year-old female with history of diabetes and hypertension seen by me 2 days ago for sp3 abdominal pain, nausea and vomiting who was admitted due to appendicitis and discharged yesterday now presents again to the ED for chief complaint abdominal cramping, vomiting and also mild diarrhea. Patient had an uncomplicated appendectomy by Dr. Tolbert. Currently she denies any fever, shortness of breath, rash, bleeding, or any other signs or symptoms on ROS at this time. She does state that her abdominal pain is diffuse and extends up into her chest. No prior history of ACS or related pathology.. Historical: - Allergies: 16:19 Lisinopril; rs5 16:19 concrete dust; rs5 16:19 Metformin HCl; rs5 - PMHx: 16:05 Hypertensive disorder; Diabetes mellitus; rs5 - PSHx: 16:19 Appendectomy; rs5 - Immunization history:: Adult Immunizations Adult Immunizations up to date. - Infectious Disease History:: Denies. - Social history:: Smoking status: Patient denies any tobacco usage or history of. ROS: 16:20 Constitutional: Negative for fever, chills, and weight loss, Eyes: Negative for injury, sp3 pain, redness, and discharge, ENT: Negative for injury, pain, and discharge, Neck: Negative for injury, pain, and swelling, Cardiovascular: Negative for chest pain, palpitations, and edema, Respiratory: Negative for shortness of breath, cough, wheezing, and pleuritic chest pain, MS/Extremity: Negative for injury and deformity, Skin: Negative for injury, rash, and discoloration, Neuro: Negative for headache, weakness, numbness, tingling, and seizure, Psych: Negative for depression, anxiety, suicide ideation, homicidal ideation, and hallucinations, Allergy/Immunology: Negative for hives, rash, and allergies, Endocrine: Negative for neck swelling, polydipsia, polyuria, polyphagia, and marked weight changes, 16:20 All other systems are negative, Exam: 16:20 Constitutional: This is a well developed, well nourished patient who is awake, alert, sp3 and in no acute distress. Head/Face: Normocephalic, atraumatic. Eyes: Pupils equal round and reactive to light, extra-ocular motions intact. Lids and lashes normal. Conjunctiva and sclera are non-icteric and not injected. Cornea within normal limits. Periorbital areas with no swelling, redness, or edema. Neck: Trachea midline, no thyromegaly or masses palpated, and no cervical lymphadenopathy. Supple, full range of motion without nuchal rigidity, or vertebral point tenderness. No Meningismus. Chest/axilla: Normal chest wall appearance and motion. Nontender with no deformity. No lesions are appreciated. Cardiovascular: Regular rate and rhythm with a normal S1 and S2. No gallops, murmurs, or rubs. Normal PMI, no JVD. No pulse deficits. Respiratory: Lungs have equal breath sounds bilaterally, clear to auscultation and percussion. No rales, rhonchi or wheezes noted. No increased work of breathing, no retractions or nasal flaring. Back: No spinal tenderness. No costovertebral tenderness. Full range of motion. Skin: Warm, dry with normal turgor. Normal color with no rashes, no lesions, and no evidence of cellulitis. MS/ Extremity: Pulses equal, no cyanosis. Neurovascular intact. Full, normal range of motion. Neuro: Awake and alert, GCS 15, oriented to person, place, time, and situation. Cranial nerves II-XII grossly intact. Motor strength 5/5 in all extremities. Sensory grossly intact. Cerebellar exam normal. Normal gait. Psych: Awake, alert, with orientation to person, place and time. Behavior, mood, and affect are within normal limits. 16:20 Abdomen/GI: Patient with diffuse abdominal pain without peritoneal signs, rebound or guarding. Active emesis noted. No blood or mucus in emesis., 17:38 ECG was reviewed by the Attending Physician. EKG demonstrates normal sinus rhythm at 74 sp3 bpm with normal intervals, normal QRS, normal axis, normal ST/T-segment's without evidence of acute ischemia. Vital Signs: 16:05 BP 147 / 81; Pulse 81; Resp 17; Temp 98(O); Pulse Ox 98% on R/A; rs5 18:21 BP 108 / 92; Pulse 89; Resp 12; Temp 98.1; Pulse Ox 98% ; bp MDM: 16:07 Medical Screening Exam initiated sp3 16:21 Data reviewed: vital signs, nurses notes, lab test result(s), radiologic studies. ED sp3 course: 59-year-old female with PMH above now status post appendectomy now with recurrent symptoms of vomiting, mild diarrhea and abdominal cramping. This could be complication of her appendectomy versus different process which could have been present on her first visit as well. Consider gastroenteritis, surgical complication, viral illness, foodborne pathogen, among others. Workup will include laboratory values, UA and imaging of the abdomen pelvis. Supportive meds and IV fluids as needed as well. Probable 23-hour observation at minimum.. 18:05 ED course: CT demonstrates ileus. Patient still actively vomiting and we will place her sp3 in observation under inpatient team.. 09/13 16:15 Order name: CBC with Diff; Complete Time: 17:12 sp3 09/13 16:15 Order name: CMP; Complete Time: 17:34 sp3 09/13 16:15 Order name: Lipase; Complete Time: 17:34 sp3 09/13 16:15 Order name: Urinalysis w/ reflexes sp3 09/13 16:15 Order name: Troponin High Sensitivity; Complete Time: 17:34 sp3 09/13 16:15 Order name: Lactate w/ 2H reflex if indic. sp3 09/13 18:08 Order name: CBC with Automated Diff EDMS 09/13 18:08 Order name: CBC with Automated Diff EDMS 09/13 18:08 Order name: Comprehensive Metabolic Panel EDMS 09/13 18:08 Order name: Comprehensive Metabolic Panel EDMS 09/13 16:15 Order name: CT Abd/Pelvis - IV Contrast Only; Complete Time: 17:12 sp3 09/13 18:08 Order name: CONS Physician Consult EDMS 09/13 16:15 Order name: IV Saline Lock; Complete Time: 16:29 sp3 09/13 16:15 Order name: Labs collected and sent; Complete Time: 16:29 sp3 09/13 16:15 Order name: NPO; Complete Time: 16:29 sp3 Administered Medications: 16:25 Drug: NS 0.9% IV 1000 ml IV at 1 bolus Per protocol; to be given as a bolus over 60 rs5 minutes Route: IV; Rate: 1 bolus; Site: left antecubital; 18:21 Follow up: IV Status: Completed infusion bp 16:30 Drug: Ondansetron IVP 4 mg IVP once; over 2 minutes Route: IVP; Site: left antecubital; rs5 18:20 Follow up: Response: No adverse reaction bp 16:30 Drug: morphine IVP or IV 4 mg IVP once over 4 mins Route: IVP; Infused Over: 4 mins; rs5 Site: left antecubital; 18:20 Follow up: Response: No adverse reaction bp Disposition Summary: 09/13/24 18:06 Hospitalization Ordered Notes: Hospitalization Status: Observation sp3 Provider: Trina Bravo3 Location: Telemetry/MedSurg (observation) sp3 Condition: Stable sp3 Problem: an acute exacerbation sp3 Symptoms: have worsened sp3 Bed/Room Type: Standard sp3 Room Assignment: 215(09/13/24 18:14) bd Diagnosis - Postoperative ileus, vomiting sp3 Forms: - Medication Reconciliation Form sp3 - SBAR form sp3 - Leadership Thank You Letter sp3 Signatures: Dispatcher [employer] EDMS Iman Hilliard Setul, MD MD sp3 Layo Guy RN RN rs5 Bill Lanier RN bp Corrections: (The following items were deleted from the chart) 16:16 16:16 CBC+H.LAB.BRZ ordered. EDMS EDMS 16:16 16:16 COMPREHENSIVE METABOLIC PANEL+C.LAB.BRZ ordered. EDMS EDMS 16:16 16:16 LIPASE+C.LAB.BRZ ordered. EDMS EDMS 16:16 16:16 Urinalysis+U.LAB.BRZ ordered. EDMS EDMS 16:16 16:16 Troponin High Sensitivity+C.LAB.BRZ ordered. EDMS EDMS 16:16 16:16 LACTATE+C.LAB.BRZ ordered. EDMS EDMS 18:14 18:06 sp3 bd
[2024-09-13] MEDS: PIPER TAZO 3.375 GM in NA CHLORIDE 0.9% 100 ML IV SCH (19:41)
[2024-09-13] MEDS: NA CHLORIDE 0.9% 1,000 ML IV SCH (19:42)
[2024-09-13] MEDS ORDERED: ONDANSETRON 4 MG/2 ML VIAL IV PRN (20:00)
[2024-09-13] MEDS: MORPHINE 2 MG/ML SYR IV ONE (20:14)
[2024-09-13] MEDS: ONDANSETRON 4 MG/2 ML VIAL IV PRN (20:14)
[2024-09-13 20:41] VITALS: BMI 31.8
[2024-09-14 05:30] LABS: Absolute Eosinophils 0.1 K/uL (0-0.5); Absolute Lymphocytes (CBC) 2.3 K/uL (0.7-4.9); Absolute Monocytes 1.1 K/uL (0.1-1.3); Absolute Neutrophil 5.9 K/uL (1.8-8.0); Basophils % 0.2 % (0-1.3); Eosinophils % 1.2 % (0-4.4); Hematocrit 42.3 % (36.0-45.0); Hemoglobin 14.1 g/dL (12.0-15.0); Lymphocytes % 24.7 % (15.3-44.8); MCH 31.3 pg (27.0-35.0); MCHC 33.2 g/dL (32.0-36.0); MCV 94.3 fL (80-100); MPV 9.7 fL (7.6-11.3); Monocytes % 11.9 % (3.3-12.3); Platelets 169 thou/uL (152-406); RBC Red Blood Cell Count 4.49 M/uL (3.86-4.86); Red Cell Distribution Width 13.2 % (12.1-15.2)
[2024-09-14 05:45] LABS: Albumin 2.6 g/dL (3.4-5.0); Albumin/Globulin Ratio 0.8 (1.1-1.8); Anion Gap 8.2 mEq/L (5.0-15.0); Bilirubin Total 0.4 mg/dL (0.2-1.0); Globulin 3.3 g/dL (2.3-3.5); Potassium 3.2 mEq/L (3.5-5.1); Protein, Total 5.9 g/dL (6.4-8.2)
[2024-09-14 05:48] LABS: Specific Gravity > 1.030 (1.005-1.030); Sqamous Epithelial <5 /HPF (None Seen); Urine Bacteria None Seen /HPF (<20); Urine Bilirubin NEGATIVE (Negative); Urine Blood Negative (Negative); Urine Clarity Clear (Clear); Urine Color Light-Yellow (Yellow); Urine Culture Reflex Order NOT NEEDED; Urine Glucose 3+ (Negative); Urine Ketones 3+ (Negative); Urine Microscopic Reflex YN ORDER UMIC; Urine Mucus Slight /HPF (None Seen); Urine Nitrite NEGATIVE (Negative); Urine Protein TRACE (Negative); Urine RBC <5 /HPF (None Seen); Urine Urobilinogen Normal (Normal); Urine WBC <5 /HPF (<5)
[2024-09-14] MEDS ORDERED: SODIUM CHLORIDE 0.9% 10ML INJ IV PRN ×2 (08:40→12:24)
[2024-09-14] MEDS: PANTOPRAZOLE 40 MG INJ IVP ONE (08:49)
[2024-09-14] MEDS: droPERidol 5 MG/2 ML VIAL IV ONE (08:52)
--- NOTE | 2024-09-14 10:19 | P.PN ---
Date of Service: 09/14/24 Subjective miserable, uncomfortable, retching without emesis, c/o chest pain, anxious Review of Systems 10-point ROS is otherwise unremarkable Physical Examination - Physical Exam General: Alert, In no apparent distress HEENT: Atraumatic, PERRLA, Mucous membr. moist/pink, EOMI, Sclerae nonicteric Neck: Supple, 2+ carotid pulse no bruit, No LAD, Without JVD or thyroid abnormality Respiratory: Clear to auscultation bilaterally, Normal air movement Cardiovascular: Regular rate/rhythm, Normal S1 S2 Gastrointestinal: Some bowel sounds, No tenderness, retching without emesis Musculoskeletal: No tenderness Integumentary: No rashes Neurological: Normal gait, Normal speech, Normal strength at 5/5 x4 extr, Normal tone, Normal affect Lymphatics: No axilla or inguinal lymphadenopathy Vital signs: reviewed Assessment and plan Ileus status post appendectomy on 09/11/24 NPO Gentle hydration Electrolyte assessment and repletion Nausea/pain control Consult Dr. Tolbert Hypokalemia Replete and trend NS at 250 an hour for potassium infusion 09/14/2024 On assessment patient uncomfortable, severely nauseated, retching without emesis. C/0 epigastric pain Inapsine 1.25 mg IV x 1 Protonix 80 mg IV x 1 Reassessment; lying in bed more calm, continued belching but no heaving
[2024-09-14] MEDS: NA CHLORIDE 0.9% 500 ML IV SCH (11:00)
[2024-09-14] MEDS: KCL 20 MEQ/100 mL IVPB 20 MEQ/100 ML BAG IV SCH ×2 (13:00→18:24)
[2024-09-14] MEDS: PANTOPRAZOLE 40 MG INJ IVP SCH (21:03)
[2024-09-14 23:44] VITALS: O2SAT 97
[2024-09-15 04:47] LABS: Absolute Eosinophils 0.2 K/uL (0-0.5); Absolute Lymphocytes (CBC) 3.5 K/uL (0.7-4.9); Absolute Monocytes 1.3 K/uL (0.1-1.3); Absolute Neutrophil 7.1 K/uL (1.8-8.0); Basophils % 0.3 % (0-1.3); Eosinophils % 1.7 % (0-4.4); Hematocrit 39.6 % (36.0-45.0); Hemoglobin 13.2 g/dL (12.0-15.0); Lymphocytes % 28.7 % (15.3-44.8); MCH 31.1 pg (27.0-35.0); MCHC 33.4 g/dL (32.0-36.0); MCV 92.9 fL (80-100); MPV 9.6 fL (7.6-11.3); Monocytes % 10.6 % (3.3-12.3); Neutrophils % 58.7 % (41.7-73.7); Platelets 181 thou/uL (152-406); RBC Red Blood Cell Count 4.27 M/uL (3.86-4.86); Red Cell Distribution Width 13.2 % (12.1-15.2)
[2024-09-15 05:10] LABS: Albumin 2.6 g/dL (3.4-5.0); Albumin/Globulin Ratio 0.8 (1.1-1.8); Anion Gap 6.2 mEq/L (5.0-15.0); Bilirubin Total 0.4 mg/dL (0.2-1.0); Globulin 3.2 g/dL (2.3-3.5); Potassium 3.2 mEq/L (3.5-5.1); Protein, Total 5.8 g/dL (6.4-8.2)
[2024-09-15] MEDS: POTASSIUM CL SA 10 MEQ TAB PO ONE (08:49)
--- NOTE | 2024-09-15 10:01 | P.DS ---
Admission Date: 09/14/24 Discharge Date: 09/15/24 Reason for Admission: Postoperative ileus status post appendectomy Brief History of Present Illness: Patient is a 59-year-old female who came to the hospital with abdominal pain and intractable nausea vomiting. Patient status post appendectomy 48 hours ago. Patient was seen by Dr. Tolbert general surgeon. Patient did well postoperatively and was discharged home yesterday. She had been doing well until this morning when she had abdominal pain and nausea vomiting. She came to the ER and her workup revealed that she had a postoperative ileus that was localized around the area of the cecum. Currently, she is feeling better after the pain medication. Will hydrate her with IV fluids and she will be admitted for observation. Hospital Course: Ms. Nobles had severe nausea and vomiting yesterday after 11 AM. She had failed Phenergan and Zofran therapy and was given Inapsine 1.25 mg IV, IV fluids continued and potassium was replaced status post 4 episodes of watery stools. This morning she is sitting upright in bed, requesting p.o. fluids, request discharge. Discussed advancing diet slowly. If she tolerates a clear liquid lunch, we will discharge her home as she has active bowel sounds, is not vomiting, and is passing gas. She is aware she needs to follow-up with Dr. Tolbert in 2 weeks for staple removal and reassessment. <Kisha Valle - Last Filed: 09/15/24 13:52> Admission Date: 09/14/24 Discharge Date: 09/15/24 Hospital Course: Discharge diagnosis; acute postoperative paralytic ileus complicated by severe emesis status post laparoscopic appendectomy <ANN Chinchilla - Last Filed: 09/15/24 14:49> Disposition: ROUTINE DISCHARGE Discharge Condition: GOOD Vital Signs/Physical Exam: Temp Pulse Resp BP Pulse Ox 98.4 F 82 14 157/86 H 96 09/15/24 08:30 09/15/24 08:30 09/15/24 08:30 09/15/24 08:30 09/15/24 08:30 General: Alert, In no apparent distress, Oriented x3 HEENT: Atraumatic, Normocephalic, PERRLA Neck: Supple Respiratory: Clear to auscultation bilaterally, Normal air movement Cardiovascular: Normal pulses, Regular rate/rhythm, Normal S1 S2 Capillary refill: <2 Seconds Gastrointestinal: Normal bowel sounds, Soft and benign, Other (denny intact and clean and dry) Musculoskeletal: No clubbing, No swelling Neurological: Normal speech, Normal tone, Normal affect Lymphatics: No axilla or inguinal lymphadenopathy External genitalia: Deferred Rectal: Deferred Laboratory Data at Discharge: WBC 12.10 thou/uL (4.3-10.9) H 09/15/24 04:34 Hgb 13.2 g/dL (12.0-15.0) 09/15/24 04:34 Hct 39.6 % (36.0-45.0) 09/15/24 04:34 Plt Count 181 thou/uL (152-406) 09/15/24 04:34 Sodium 139 mEq/L (136-145) 09/15/24 04:34 Potassium 3.2 mEq/L (3.5-5.1) L 09/15/24 04:34 BUN 8 mg/dL (7-18) 09/15/24 04:34 Creatinine 0.78 mg/dL (0.55-1.02) 09/15/24 04:34 Glucose 88 mg/dL (74-106) 09/15/24 04:34 Magnesium 2.0 mg/dL (1.6-2.4) 09/15/24 04:34 Total Bilirubin 0.4 mg/dL (0.2-1.0) 09/15/24 04:34 AST 15 U/L (15-37) 09/15/24 04:34 ALT 40 U/L (13-56) 09/15/24 04:34 Alkaline Phosphatase 55 U/L (45-117) 09/15/24 04:34 Lipase 31 U/L (13-75) 09/13/24 16:20 <Valle,Kisha Keon - Last Filed: 09/15/24 13:52> Vital Signs/Physical Exam: Temp Pulse Resp BP Pulse Ox 98.3 F 83 12 143/89 H 96 09/15/24 12:00 09/15/24 12:00 09/15/24 12:00 09/15/24 12:00 09/15/24 12:00 Laboratory Data at Discharge: WBC 12.10 thou/uL (4.3-10.9) H 09/15/24 04:34 Hgb 13.2 g/dL (12.0-15.0) 09/15/24 04:34 Hct 39.6 % (36.0-45.0) 09/15/24 04:34 Plt Count 181 thou/uL (152-406) 09/15/24 04:34 Sodium 139 mEq/L (136-145) 09/15/24 04:34 Potassium 3.2 mEq/L (3.5-5.1) L 09/15/24 04:34 BUN 8 mg/dL (7-18) 09/15/24 04:34 Creatinine 0.78 mg/dL (0.55-1.02) 09/15/24 04:34 Glucose 88 mg/dL (74-106) 09/15/24 04:34 Magnesium 2.0 mg/dL (1.6-2.4) 09/15/24 04:34 Total Bilirubin 0.4 mg/dL (0.2-1.0) 09/15/24 04:34 AST 15 U/L (15-37) 09/15/24 04:34 ALT 40 U/L (13-56) 09/15/24 04:34 Alkaline Phosphatase 55 U/L (45-117) 09/15/24 04:34 Lipase 31 U/L (13-75) 09/13/24 16:20 <ANN Chinchilla - Last Filed: 09/15/24 14:49> Diet: S[place] Activity: Ad kourtney Time spent managing pt's care (in minutes): 35 <Kisha Valle - Last Filed: 09/15/24 13:52> <ANN Chinchilla - Last Filed: 09/15/24 14:49> Home Medications: Escitalopram Oxalate 10 mg PO DAILY 09/11/24 Losartan/Hydrochlorothiazide [Losartan-Hctz 100-12.5 mg Tab] 12.5 mg PO DAILY 09/11/24 Pioglitazone HCl 7 mg PO DAILY 09/11/24 Rosuvastatin Calcium 40 mg PO DAILY 09/11/24 Semaglutide [Rybelsus] 7 mg PO DAILY 09/11/24 buPROPion HCL [Bupropion Xl] 300 mg PO DAILY 09/11/24 glyBURIDE [Glyburide] 5 mg PO DAILY 09/11/24 Promethazine Tab [Phenergan] 25 mg PO Q6HP PRN #20 tab 09/15/24 New Medications: Promethazine Tab [Phenergan] 25 mg PO Q6HP PRN #20 tab PRN Reason: Nausea / Vomiting Physician Discharge Instructions: Ms. Nobles had severe nausea and vomiting yesterday after 11 AM. She had failed Phenergan and Zofran therapy and was given Inapsine 1.25 mg IV, IV fluids continued and potassium was replaced status post 4 episodes of watery stools. This morning she is sitting upright in bed, requesting p.o. fluids, request discharge. Discussed advancing diet slowly. If she tolerates a clear liquid lunch, we will discharge her home as she has active bowel sounds, is not vomiting, and is passing gas. She is aware she needs to follow-up with Dr. Tolbert in 2 weeks for staple removal and reassessment. Followup: Patrick Tolbert MD [ACTIVE - CAN ADMIT] - 1-2 Weeks NONE,NONE [Primary Care Provider] -
[2024-09-15 12:19] VITALS: BP 143/89; TEMP 98.3
--- NOTE | 2024-09-20 08:59 | EKG ---
Test Date: 2024-09-13 Test Time: 16:09:26 Airplane Patroller: LOUISE MEASUREMENT RESULTS: Intervals: Rate: 74 ME: 128 QRSD: 64 QT: 406 QTc: 450 [place]: P: 57 ME: 128 QRS: 24 T: 54 INTERPRETIVE STATEMENTS: Normal sinus rhythm Low voltage QRS Nonspecific ST abnormality Abnormal ECG No previous ECG available for comparison Electronically Signed On 09-20-24 08:56:38 REIMBURSEMENT SPECIALIST by Bin Jack
== END 2024-09-15 14:58 | disposition home or self-care (01) | DRG 394 ==
LOC: ER 15:57 → ERHOLD 18:04 → 2ND 18:29 → OBSVTOIN 09-14 12:23
PROVIDERS: ADMIT Hospitalist; ATTEND Internal Medicine
DX: K91.89 Other postprocedural complications and disorders of digestive system (principal); K56.0 Paralytic ileus; E11.9 Type 2 diabetes mellitus without complications; I10 Essential (primary) hypertension; E78.5 Hyperlipidemia, unspecified; E87.6 Hypokalemia; Z88.8 Allergy status to other drugs, medicaments and biological substances; Z90.49 Acquired absence of other specified parts of digestive tract; Z79.899 Other long term (current) drug therapy; Y83.8 Other surgical procedures as the cause of abnormal reaction of the patient, or of later complication, without mention of misadventure at the time of the procedure
CPT/HCPCS: 36415; 74177; 80053; 81001; 83605; 83690; 83735; 84484; 85025; 93005; 96361; 96374; 96375; 99285; G0378; J1790; J2270; J2405; J2470; J2543; J3480; J7030; J7040; Q9967